=== PATIENT | male | born 1930 | race Caucasian/White ===

== ENCOUNTER 2018-02-02 11:23 | Inpatient (IN) ==
[2018-02-02] MEDS ORDERED: Sod Chloride 0.9% Inj 1,000 ML IV.SIG ONE (11:44)
[2018-02-02 12:02] LABS: Baso # (Auto) 0.2 th/mm3 (0.0-0.2); Baso % (Auto) 1.2 % (0.0-2.0); Eos # (Auto) 0.5 th/mm3 (0.0-0.4); Eos % (Auto) 3.1 % (0.0-4.0); Hematocrit 33.4 % (39.0-51.0); Lymph # (Auto) 1.5 th/mm3 (1.0-4.8); Lymph % (Auto) 10.1 % (9.0-44.0); Mean Corpuscular Hemoglobin 29.7 pg (27.0-34.0); Mean Corpuscular Volume 89.9 fL (80.0-100.0); Mean Platelet Volume 8.5 fL (7.0-11.0); Mono # (Auto) 1.3 th/mm3 (0.0-0.9); Mono % (Auto) 8.7 % (0.0-8.0); Neut # (Auto) 11.2 th/mm3 (1.8-7.7); Neut % (Auto) 76.9 % (16.0-70.0); Platelet Count 435 th/mm3 (150-450); Red Blood Count 3.72 mil/mm3 (4.50-5.90); Red Cell Distribution Width 16.3 % (11.6-17.2); White Blood Count 14.6 th/mm3 (4.0-11.0)
--- NOTE | 2018-02-02 12:23 | ED ---
HPI General Chief complaint: Weakness Stated complaint: SOB/weakness/dizziness Time Seen by Provider: 02/02/18 11:49 Source: patient and family Mode of arrival: wheelchair Limitations: no limitations History of Present Illness MD Complaint: Reports generalized weakness Onset (ago): week(s) (1) Duration: progressively worsening Location: Reports generalized Severity: moderate Relieving factors: none Exacerbating factors: none Context: Reports other (No obvious reason) Associated symptoms: Reports confusion, loss of appetite and shortness of breath ; Denies dysuria, fever/chills and nausea/vomiting (Positive diarrhea) Related Data Home Medications Medication Instructions Recorded Confirmed Unable to Obtain Home Meds 02/02/18 02/02/18 Allergies Allergy/AdvReac Type Severity Reaction Status Date / Time tramadol Allergy Intermediate confusion Unverified 11/24/16 12:39 MRI PRECAUTION Allergy Severe Uncoded 03/21/15 06:31 Review of Systems ROS: all other systems reviewed are negative [facility] Medical History Medical History CHF (congestive heart failure) (Acute) Diabetes (Acute) Pacemaker (Acute) Stroke (Acute) Social History Social History Substance History: No History of Abuse Smoking Status: Never smoker How Often Do You Have a Drink Containing Alcohol: Never Recent Travel in [facility] within the Last 8 Weeks: No Recent Out of Country Travel within the Last 8 Weeks: No Immunization History Tetanus Immunization: Unsure Exam Const General: cooperative, healthy appearing, comfortable, no acute distress and well developed Orientation: alert, awake and oriented x3 HENMT Head: normal to inspection, normocephalic and atraumatic Mouth: moist mucous membranes abnormal Eyes Alignment and Position: alignment normal and position abnormal Conjunctivae: conjunctivae normal Sclera: sclerae normal EOM: EOM intact bilaterally Neck Neck: normal visual inspection and full ROM Chest Chest: normal inspection of the chest Resp Effort & Inspection: normal respiratory effort and labored ( mildly labored) Auscultation: clear to auscultation bilaterally Cardio Rate: regular rate Rhythm: regular rhythm Other: Initial systolic blood pressure was 79 GI Inspection: normal to inspection Palpation: soft Back/Spine/Pelvis Cervical Spine: cervical ROM normal Thoracic/Lumbar Spine: thoraco-lumbar ROM normal Skin General: no rashes or lesions noted, turgor normal and dry skin Neuro General: alert, awake, oriented x3, moves all extremities and CN's II-XI intact bilaterally Extrem General: normal to inspection and full ROM Psych Appearance: grossly normal Mental Status: mental status grossly normal Speech and Movement: speech and movement normal Mood: congruent mood Affect: normal affect Attitude: cooperative Thought Process: normal Thought Content: normal Judgment: judgment good Course Consultations Consultation #1: Dr. Mcmillan Time: 13:34 Initial Documented Vital Signs Temperature 96.5 F L 02/02/18 11:30 Pulse Rate 68 02/02/18 11:30 Respiratory Rate 18 02/02/18 11:30 Blood Pressure 72/41 L 02/02/18 11:30 Pulse Oximetry 100 02/02/18 11:30 Last Documented Vital Signs Temperature 96.5 F L 02/02/18 11:30 Pulse Rate 69 02/02/18 13:37 Respiratory Rate 18 02/02/18 13:37 Blood Pressure 122/61 02/02/18 13:37 Pulse Oximetry 95 02/02/18 13:37 Critical Care Time Critical Care Time: Yes Total Critical Care Time: 45 Attestation: Time to perform other separately billable procedures was not included in the critical care time. My time did not include minutes spent treating any other patients simultaneously or on activities that did not directly contribute to the patient's treatment. The services I provided to this patient were to treat and/or prevent clinically significant deterioration due to hypotension, hyperkalemia, acute on chronic renal failure I provided critical care services requiring my management, as noted below: Chart data review, documentation time, medication orders and management, vital sign assessments/reviewing monitor data, ordering and reviewing lab tests, ordering and interpreting/reviewing x-rays and diagnostic studies, care of the patient and discussion of the patient with the admitting physicians Medical Decision Making MDM Narrative Medical decision making narrative: Patient presents with weakness, confusion, poor appetite and diarrhea for the last week. Family member reports that he has lost 11 pounds in 1 week. He will be fluid resuscitated. Medical Screen Exam Complete: Yes Emergency Medical Condition: Yes Lab Data Lab results reviewed: Yes I reviewed the patient's lab results. Result diagrams: 02/02/18 11:52 02/02/18 11:52 Lab Results 02/02/18 02/02/18 Range/Units 11:52 11:52 WBC 14.6 H (4.0-11.0) th/mm3 RBC 3.72 L (4.50-5.90) mil/mm3 Hgb 11.0 L (13.0-17.0) gm/dL Hct 33.4 L (39.0-51.0) % MCV 89.9 (80.0-100.0) fL MCH 29.7 (27.0-34.0) pg MCHC 33.0 (32.0-36.0) % RDW 16.3 (11.6-17.2) % Plt Count 435 (150-450) th/mm3 MPV 8.5 (7.0-11.0) fL Neut % (Auto) 76.9 H (16.0-70.0) % Lymph % (Auto) 10.1 (9.0-44.0) % [place] % (Auto) 8.7 H (0.0-8.0) % Eos % (Auto) 3.1 (0.0-4.0) % Baso % (Auto) 1.2 (0.0-2.0) % Neut # (Auto) 11.2 H (1.8-7.7) th/mm3 Lymph # (Auto) 1.5 (1.0-4.8) th/mm3 [place] # (Auto) 1.3 H (0.0-0.9) th/mm3 Eos # (Auto) 0.5 H (0.0-0.4) th/mm3 Baso # (Auto) 0.2 (0.0-0.2) th/mm3 WBC Differential . Differential Comment Auto diff final Sodium 137 (136-145) meq/L Potassium 6.7 H* (3.5-5.1) meq/L Chloride 109 H (98-107) meq/L Carbon Dioxide 18.0 L (21.0-32.0) meq/L Anion Gap 10 (5-15) meq/L BUN 73 H (7-18) mg/dL Creatinine 3.67 H (0.60-1.30) mg/dL Estimated GFR 16 L (>89) mL/min Random Glucose 145 H (74-106) mg/dL Calcium 8.6 (8.5-10.1) mg/dL Magnesium 2.9 H (1.5-2.5) mg/dL Total Bilirubin 0.2 (0.2-1.0) mg/dL AST 26 (15-37) U/L ALT 32 (12-78) U/L Alkaline Phosphatase 113 (45-117) U/L Troponin I Less than 0.02 L (0.02-0.05) ng/mL Total Protein 7.5 (6.4-8.2) g/dL Albumin 3.1 L (3.4-5.0) g/dL Imaging Data Radiologist's impression: Chest X-Ray 02/02/18 12:23 CONCLUSION: 1. No acute abnormality or significant interval change. ECG Data EKG Prior to Arrival: No Attestation: I personally reviewed and interpreted this ECG as follows: (EKG shows a paced rhythm with a rate of 72. No Scar[place]ossa criteria. Prevous EKG was not paced.) Prior ECG tracings: available for review Discharge Plan Discharge Disposition Patient Disposition: 30 Still Patient Discharge Details Diagnosis: Acute hypotension, Acute hyperkalemia, Renal failure (ARF), acute on chronic Physicians Team ED Provider: Aiyana Gross Primary Care Provider: Norman Penn Rxs /Orders / Referrals /Forms Prescriptions: No Action Unable to Obtain Home Meds RF: 0 Status ED Status: Pending Admission
[2018-02-02 12:25] LABS: Alanine Aminotransferase 32 U/L (12-78); Albumin 3.1 g/dL (3.4-5.0); Anion Gap 10 meq/L (5-15); Aspartate Aminotransferase 26 U/L (15-37); Blood Urea Nitrogen 73 mg/dL (7-18); Calcium 8.6 mg/dL (8.5-10.1); Chloride 109 meq/L (98-107); Glomerular Filtration Rate 16 mL/min (>89); Glucose,Random 145 mg/dL (74-106); Magnesium 2.9 mg/dL (1.5-2.5); Sodium 137 meq/L (136-145)
[2018-02-02 12:26] LABS: Alkaline Phosphatase 113 U/L (45-117); Total Protein 7.5 g/dL (6.4-8.2)
[2018-02-02 12:28] LABS: Potassium 6.7 meq/L (3.5-5.1)
[2018-02-02] MEDS ORDERED: Sodium Bicarbonate 8.4% Inj 50 MEQ/50 ML Syringe IV.PUSH ONE (12:30)
[2018-02-02] MEDS ORDERED: Calcium Chloride Inj 1 GM/10 ML Syringe IV.PUSH ONE (12:30)
[2018-02-02] MEDS ORDERED: Sodium Polystyrene Sulfonate/Sorbitol Liq 15 GM/60 ML UDC PO ONE (12:31)
--- NOTE | 2018-02-02 12:50 | XR ---
EXAM DATE: 02/02/2018 12:23 PM EDT AGE/SEX: 87 years / Male INDICATIONS: . Cough. CLINICAL DATA: This is the patient's initial encounter. Patient reports that signs and symptoms have been present for 1 day and indicates a pain score of 0/10. MEDICAL/SURGICAL HISTORY: . A-fib. Pacemaker. COMPARISON: [facility] [place], 03/21/2015. . FINDINGS: Stable diffuse interstitial prominence. No significant new focal pleural or parenchymal opacities. Ca rdiac silhouette is mildly enlarged. Stable dual lead pacemaker in place. Remainder of the exam is un changed. CONCLUSION: 1. No acute abnormality or significant interval change. Electronically signed by: Toy Vogel MD 02/02/2018 12:49 PM EDT
[2018-02-02] MEDS ORDERED: Sod Chloride 0.9% Inj 1,000 ML IV.SIG SCH (13:15)
[2018-02-02] MEDS ORDERED: Bisacodyl 10 MG Supp RECTAL PRN (13:50)
[2018-02-02] MEDS ORDERED: Acetaminophen 325 MG Tablet PO PRN (13:50)
[2018-02-02] MEDS ORDERED: Morphine Sulfate Inj 2 MG/ML Vial IV.PUSH PRN (13:50)
[2018-02-02] MEDS ORDERED: Dextrose 50% in Water 50 ML Vial IV.PUSH PRN (13:57)
[2018-02-02] MEDS ORDERED: Sod Chloride 0.9% Inj 1,000 ML IV.CONT SCH (14:00)
--- NOTE | 2018-02-02 14:10 | P.HPCC ---
History of Present Illness Service: Critical care medicine Primary Care Physician: Norman Penn MD, R3 Chief Complaint: Generalized weakness History of Present Illness: This is a 87-year-old male. Full code. Admission 02/02/2018. Past medical history includes hypertension, hyperlipidemia, coronary artery disease, atrial fibrillation currently with a atrioventricular pacemaker, diabetes mellitus and prior history of CVA with no current focal neurological deficits. Patient presents to [facility] with 2-week history of generalized weakness/ fatigue. Patient has had a very poor appetite and intermittent diarrhea according to 2 care provider at bedside. He was noted to be initially hypotensive with a systolic blood pressure in the 60s. Received 2 L normal saline is currently with a systolic blood sugar 120 and feeling much improved. Initial EKG revealed a paced rhythm. Troponin was 0.02. BMP revealed acute kidney with a creatinine of 3.7. Baseline 1.6. Potassium is 6.7. Patient has a leukocytosis of 14,000 and normocytic anemia. UA is currently pending. Denies any chest pain, abdominal pain. Patient received with potassium binding resins, bicarbonate, D50 and insulin. Recheck potassium is currently pending. We are asked to admit the patient by the ER physician. - Diagnosis (1) Coronary artery disease (2) Essential hypertension (3) Hyperlipidemia (4) Leukocytosis (5) Normocytic anemia (6) Hypermagnesemia (7) Acute hypotension (8) Acute hyperkalemia (9) Renal failure (ARF), acute on chronic Inpatient Certification: I certify that the inpatient services were ordered in accordance with Medicare regulations governing the order. This includes certification that hospital inpatient services are reasonable and necessary and in the case of services not specified as inpatient-only under 42 CFR 419.22(n), that they are appropriately provided as inpatient services in accordance to with the 2-midnight benchmark under 43 CFR 412.3(e) Estimated Total Length of Stay (Days): 3 Plans for Post Hospital Care: Home Review of Systems Constitutional: Reports anorexia, Reports body ache(s), Denies chills, Denies daytime sleepiness Eyes: Denies blind spots, Denies blurry vision Ears, Nose, Mouth, and Throat: Reports poor balance, Denies abnormal hearing, Denies hoarseness Cardiovascular: Denies chest pain, Denies leg swelling, Denies shortness of breath, Denies shortness of breath with activity Respiratory: Denies chest congestion, Denies pain on inspiration, Denies shortness of breath with activity Gastrointestinal: Reports bloating, Reports loose stools, Reports nausea, Denies abdominal pain, Denies vomiting Genitourinary: Reports urinary hesitancy, Denies decreased urination Musculoskeletal: Reports abnormal walking, Reports joint pain Skin/Breast: Denies bleeding lesions, Denies redness Neurologic: Reports unsteadiness, Denies abnormal hearing, Denies frequent falls , Denies headache(s) Psychiatric: Denies anxiety, Denies confusion, Denies depression Endocrine: Denies cold intolerance, Denies increased thirst Hematologic/Lymphatic: Denies easy bleeding Allergic/Immunologic: Denies GI upset with certain foods PMFSH - History History Provided By: Family Member - Medical History Medical History: Medical History (Last Updated 02/02/18 @ 14:08 by Bhanu Mcmillan MD) CHF (congestive heart failure) Chronic kidney disease, stage III (moderate) Diabetes Essential hypertension History of atrial fibrillation History of pacemaker Hyperlipidemia Pacemaker Stroke - Surgical History Surgical History: Surgical History (Last Updated 02/02/18 @ 14:08 by Bhanu Mcmillan MD) History of bilateral knee replacement - Family History Family History: Family History (Last Updated 02/02/18 @ 14:09 by Bhanu Mcmillan MD) Other Family history unknown - Social History I have reviewed the patient's Social History: Yes - Tobacco History Second Hand Smoke Exposure: No Tobacco Use In Past 30 Days: No Smoking Status: Never smoker - Alcohol History How Often Do You Have a Drink Containing Alcohol: Never - Substance Use History Substance History: No History of Abuse - Travel History Recent Travel in the [place] Within the Last 8 Weeks: No Recent Travel Out of the Country Within the Last 8 Weeks: No - Immunization History Tetanus Immunization: Unsure Medications and Allergies Active Medications: Active Medications Acetaminophen (Tylenol) 650 mg PO Q6H PRN PRN Reason: FEVER Hydrocodone Bitart/Acetaminophen (Huger 5/325) 1 tab PO Q4H PRN PRN Reason: PAIN SCALE 1 TO 5 Al Hydroxide/Mg Hydroxide (Milk Of Magnesia Liq) 30 ml PO Q12H PRN PRN Reason: Mild Constipation Albuterol (Albuterol Neb (Leatha)) 2.5 mg NEB Q2HR NEB PRN PRN Reason: SHORTNESS OF BREATH/WHEEZING Albuterol (Duoneb Neb (Prn)) 1 ampul NEB Q6HR NEB [facility] Bisacodyl (Dulcolax Supp) 10 mg RECTAL DAILY PRN PRN Reason: SEVERE CONSITIPATION Chlorhexidine Gluconate (Chlorhexidine 2% Cloth) 3 pack TOPICAL DAILY@0400 LEATHA Stop: 02/08/18 03:59 Chlorhexidine Gluconate (Chlorhexidine 2% Cloth) 3 pack TOPICAL DAILY@0400 PRN PRN Reason: Extra cloth needed Stop: 02/08/18 03:59 Chlorhexidine Gluconate (Chlorhexidine 2% Cloth) 3 pack TOPICAL DAILY@0400 LEATHA Stop: 02/08/18 03:59 Chlorhexidine Gluconate (Chlorhexidine 2% Cloth) 3 pack TOPICAL DAILY@0400 PRN PRN Reason: Extra cloth needed Stop: 02/08/18 03:59 Dextrose (D50w Vial) 50 ml IV.PUSH UNSCH PRN PRN Reason: PER HYPOGLYCEMIA PROTOCOL Glucagon (Glucagon Inj) 1 mg OTHER PRN PRN PRN Reason: for Hypoglycemia Protocol Heparin Sodium (Porcine) (Heparin Inj) 5,000 units SQ Q12H [facility] Sodium Chloride (Ns Inj) 1,000 mls @ 0 mls/hr IV.SIG BOLUS [facility] Sodium Chloride (Ns Inj) 1,000 mls @ 84 mls/hr IV.CONT .[id number] [facility] Insulin Aspart (Novolog Insulin Correctional Sugar Inj) 0 unit SQ Q6HR [facility]; Protocol Lactulose (Lactulose Liq) 30 ml PO DAILY PRN PRN Reason: SEVERE CONSITIPATION Morphine Sulfate (Morphine Inj) 2 mg IV.PUSH Q2H PRN PRN Reason: PAIN SCALE 6 TO 10 Ondansetron HCl (Zofran Inj) 4 mg IV.PUSH Q6H PRN PRN Reason: NAUSEA OR VOMITING Pantoprazole Sodium (Protonix) 40 mg PO DAILY [facility] Sennosides (Senokot) 17.2 mg PO Q12H PRN PRN Reason: Moderate Constipation Sodium Chloride (Ns Flush) 2 ml IV.FLUSH PRN PRN PRN Reason: FLUSH AFTER USING IV ACCESS Sodium Chloride (Ns Flush) 2 ml IV.FLUSH BID LEATHA Sodium Chloride (Ns Flush) 2 ml IV.FLUSH PRN PRN PRN Reason: FLUSH AFTER USING IV ACCESS Allergies Allergy/AdvReac Type Severity Reaction Status Date / Time tramadol Allergy Intermediate confusion Unverified 11/24/16 12:39 MRI PRECAUTION Allergy Severe Uncoded 03/21/15 06:31 Home Medications Medication Instructions Recorded Confirmed Type Unable to Obtain Home Meds 02/02/18 02/02/18 History Results - Labs CBC & Chem 7: 02/02/18 11:52 02/02/18 11:52 Labs: Short CBC 02/02/18 Range/Units 11:52 WBC 14.6 H (4.0-11.0) th/mm3 Hgb 11.0 L (13.0-17.0) gm/dL Hct 33.4 L (39.0-51.0) % Plt Count 435 (150-450) th/mm3 BMP 02/02/18 11:52 Sodium 137 Potassium 6.7 H* Chloride 109 H Carbon Dioxide 18.0 L BUN 73 H Creatinine 3.67 H Calcium 8.6 Cardiac Enzymes 02/02/18 Range/Units 11:52 Troponin I Less than 0.02 L (0.02-0.05) ng/mL Liver Function 02/02/18 Range/Units 11:52 Total Bilirubin 0.2 (0.2-1.0) mg/dL AST 26 (15-37) U/L ALT 32 (12-78) U/L Alkaline Phosphatase 113 (45-117) U/L Albumin 3.1 L (3.4-5.0) g/dL - Imaging Impressions Chest X-Ray 02/02/18 12:23 CONCLUSION: 1. No acute abnormality or significant interval change. Exam Vital signs: Vital Signs 02/02/18 11:30 02/02/18 11:47 02/02/18 12:31 Temperature 96.5 F L Pulse Rate 68 71 69 Respiratory Rate 18 18 20 Blood Pressure 72/41 L 99/54 L 100/52 L Pulse Oximetry 100 98 95 02/02/18 13:37 Temperature Pulse Rate 69 Respiratory Rate 18 Blood Pressure 122/61 Pulse Oximetry 95 Intake & Output 02/01/18 02/02/18 02/02/18 18:59 06:59 18:59 Intake Total 1000 / 1000 Balance 1000 / 1000 Weight 81.647 kg Intake: IV 1000 / 1000 NS Inj 1,000 ML @ Wide Open IV. 1000 / 1000 SIG BOLUS ONE Rx#:[id number] - Constitutional no acute distress - Routine HEENT Exam Head: Present: normocephalic, atraumatic Eye: Present: EOMI, PERRL ENT: Present: mucous membranes dry, external ear normal - Routine Neck Exam Present: supple, full ROM. Absent: JVD - Routine Chest/Breast/Axilla Exam Chest wall: Absent: tenderness Breast: Absent: tenderness Axillae: Absent: lymphadenopathy - Routine Respiratory Exam Present: CTA bilaterally. Absent: accessory muscle use, rhonchi - Routine Cardiovascular Exam Comments: Atrioventricular paced rhythm. No murmurs. - Routine Abdominal Exam Present: soft, normoactive bowel sounds. Absent: tenderness - Routine Extremities Exam Absent: cyanosis, clubbing, edema - Routine Skin Exam Present: intact - Routine Neurological Exam Present: alert, oriented X3, CN II-XII intact. Absent: sensory deficit, motor deficit Septic Shock Reassessment Septic shock perfusion: reassessment completed Caprini VTE Risk Assessment Caprini VTE Risk Assessment: Moderate/High Risk (score >= 2) Caprini Risk Assessment Model: Point Value = 1 Point Value = 2 Point Value = 3 Point Value = 5 Age 41-60 Minor surgery BMI > 25 kg/m2 Swollen legs Varicose veins or History of unexplained or recurrent spontaneous Oral contraceptives or hormone replacement Sepsis (< 1 month) Serious lung disease, including pneumonia (< 1 month) Abnormal pulmonary function Acute myocardial infarction Congestive heart failure (< 1 month) History of inflammatory bowel disease Medical patient at bed rest Age 61-74 Arthroscopic surgery Major open surgery (> 45 min) Laparoscopic surgery (> 45 min) Malignancy Confined to bed (> 72 hours) Immobilizing plaster cast Central venous access Age >= 75 History of VTE Family history of VTE Factor V Leiden Prothrombin [id number] Lupus anticoagulant Anticardiolipin antibodies Elevated serum homocysteine Heparin-induced thrombocytopenia Other congenital or acquired thrombophilia Stroke (< 1 month) Elective arthroplasty Hip, pelvis, or leg fracture Acute spinal cord injury (< 1 month) Prophylaxis Regimen: Total Risk Factor Score Risk Level Prophylaxis Regimen 0-1 Low Early ambulation 2 Moderate Order ONE of the following: *Sequential Compression Device (SCD) *Heparin 5000 units SQ BID 3-4 Higher Order ONE of the following medications: *Heparin 5000 units SQ TID *Enoxaparin/Lovenox 40 mg SQ daily (WT < 150 kg, CrCl > 30 mL/min) *Enoxaparin/Lovenox 30 mg SQ daily (WT < 150 kg, CrCl > 10-29 mL/min) *Enoxaparin/Lovenox 30 mg SQ BID (WT < 150 kg, CrCl > 30 mL/min) AND/OR *Sequential Compression Device (SCD) 5 or more Highest Order ONE of the following medications: *Heparin 5000 units SQ TID (Preferred with Epidurals) *Enoxaparin/Lovenox 40 mg SQ daily (WT < 150 kg, CrCl > 30 mL/min) *Enoxaparin/Lovenox 30 mg SQ daily (WT < 150 kg, CrCl > 10-29 mL/min) *Enoxaparin/Lovenox 30 mg SQ BID (WT < 150 kg, CrCl > 30 mL/min) AND *Sequential Compression Device (SCD) Assessment and Plan - Problem List (1) Coronary artery disease Code(s): I25.10 - Atherosclerotic heart disease of [place] coronary artery without angina pectoris Status: Acute (2) Essential hypertension Code(s): I10 - Essential (primary) hypertension Status: Acute (3) Hyperlipidemia Code(s): E78.5 - Hyperlipidemia, unspecified Status: Acute (4) Leukocytosis Code(s): D72.829 - Elevated white blood cell count, unspecified Status: Acute (5) Normocytic anemia Code(s): D64.9 - Anemia, unspecified Status: Acute (6) Hypermagnesemia Code(s): E83.41 - Hypermagnesemia Status: Acute (7) Acute hypotension Code(s): I95.9 - Hypotension, unspecified Status: Acute (8) Acute hyperkalemia Code(s): E87.5 - Hyperkalemia Status: Acute (9) Renal failure (ARF), acute on chronic Code(s): N17.9 - Acute kidney failure, unspecified; N18.9 - Chronic kidney disease, unspecified Status: Acute - Assessment and Plan Plan: Neuro/Psych: History of CVA Obtain home medications. Acetaminophen 650 mg p.o. every 6 hours as needed fever Hydrocodone/acetaminophen 5/325 1 tablet every 4 hours as needed pain 1 through 5 Morphine sulfate 2 mg IV every 2 hours as needed pain 6 through 10 CV: History of atrial fibrillation Status post atrial/ventricular pacemaker Coronary artery disease Essential hypertension Hyperlipidemia Obtain home medications Received 2 L normal saline wide open ED. Initial troponin 0 0.02. EKG revealed atrial ventricular paced rhythm. Echocardiogram 2014 revealed EF of 50-55%. LVH. LA dilatation. PAP 33 mmHg. Resp: Nasal cannula to maintain saturations greater than equal to 90% Incentive spirometry while awake As needed albuterol aerosols every 2 hours as needed GI: Diarrhea Check C. difficile KUB ordered Liver function test within normal limits. Check lipase. Advance diet to diabetic/cardiac diet : Straight catheterization as needed Endo: History of diabetes mellitus Sliding scale insulin Accu-Cheks to maintain euglycemia/aspart insulin medium protocol Check TSH Renal: Acute kidney injury in the setting of chronic kidney disease stage III a Check renal ultrasound and urine eosinophils and sodium and creatinine Obtain home medications Avoid nephrotoxic medications Monitor urine output Accurate I's and O's Recheck BUN and creatinine in a.m. 11/03 Heme: Normocytic anemia Leukocytosis Monitor CBC daily. Follow trends. No indication for transfusion of blood products at this time. ID: Monitor for signs and since hematology infection MSK: PT evaluate and treat. FEN: Acute hyperkalemia Acute hypermagnesia Recheck potassium at 1700 hrs. Received 2 L normal saline in ED. Received D50/insulin/bicarbonate, calcium and potassium binder EKG revealed atrial and ventricularly paced rhythm. Received 2 L normal saline wide open. Currently on 0.9% NaCl at 84 cc an hour Access Utilize peripheral IV. Central line if indicated Prophylaxis -GI -pantoprazole -DVT-SCD/enoxaparin Level 3 admission Code Status: Full code Discussed Condition With: Dr. Gross/emergency room physician. Patient. Care plan discussed and all questions answered. Healthcare provider not available at time of dictation (1) Coronary artery disease Qualifiers: Coronary Disease-Associated Artery/Lesion type: [place] artery [place] vs. transplanted heart: [place] heart Associated angina: angina presence unspecified Qualified Code(s): I25.10 - Atherosclerotic heart disease of [place] coronary artery without angina pectoris (3) Hyperlipidemia Qualifiers: Hyperlipidemia type: unspecified Qualified Code(s): E78.5 - Hyperlipidemia, unspecified (4) Leukocytosis Qualifiers: Leukocytosis type: unspecified Qualified Code(s): D72.829 - Elevated white blood cell count, unspecified (9) Renal failure (ARF), acute on chronic Qualifiers: Acute renal failure type: unspecified Chronic kidney disease stage: stage 3 ( moderate) Qualified Code(s): N17.9 - Acute kidney failure, unspecified; N18.3 - Chronic kidney disease, stage 3 (moderate)
[2018-02-02 14:32] LABS: Bacteria,Urine Rare /hpf; Bilirubin,Urine Negative (Negative); Clarity,Urine Cloudy (Clear); Color,Urine Yellow (Yellw/Straw); Glucose,Urine (UA) Negative (Negative); Hyaline Casts,Urine 76 /lpf (0-3); Leukocyte Esterase,Urine Trace (Negative); Mucus,Urine Few /lpf (Occasional); Nitrite,Urine Negative (Negative); Squamous Epithelial Cell,Urine 2 /hpf (0-5)
[2018-02-02] MEDS ORDERED: Heparin - SQ 10,000 UNITS/ML Vial SQ SCH (15:00)
--- NOTE | 2018-02-02 15:09 | P.CONFP ---
History of Present Illness Service: Family Medicine Consult date: 02/02/18 Requesting Physician: Norman Penn Reason for Consult: Continuity of care (Follows with [facility]) Primary Care Provider: Norman Penn MD, R3 Chief Complaint: Generalized weakness History of Present Illness: 87 yo male with CHF, HTN, DM presenting with a 1 week history of slowly progressive altered mental status, shortness of breath, and fatigue without focal weakness. His caregiver is present who provides most history. Over the last week he has been struggling more to breathe, especially with exertion. He used to be able to walk to the bathroom without SOB, but now minimal activity makes him incredibly short of breath. No wheezing noted. He has also been more fatigued globally, sleeping significantly more than usual. No focal weakness or speech difficulty noted. Slow weight loss also reported (patient was unable to get on scale today for weight). Caregiver also notes diarrhea for the last 5 days. No abdominal pain or bloody stool reported. He was seen in clinic this morning by myself and the above history was noted. At the time, his BP was low (80/40) despite recent reduction of his lisinopril dose a month ago (was asymptomatic at that time). On exam in the office patient appeared to be in mild distress. Heart/lung exam was benign. Due to clinical impression he was sent to the ER for evaluation. Patient is now admitted to the ICU due to acute kidney injury and dehydration with hypotension. He and caregiver note no new symptoms since seen in office this morning. Consult placed by myself for continuity of care after discussion with cloud security architect Dr. Mcmillan. In ER, patient was found to be hyperkalemic with potassium of 6.7. EKG showed paced ventricular rhythm but otherwise no significant abnormality. He received IV calcium, oral kayexelate, insulin, and dextrose to treat the hyperkalemia. He was also found to be hypotensive with significant NICOLASA. Review of Systems Constitutional: Reports anorexia, Reports fatigue, Reports lack of energy, Denies chills, Denies fever(s) Ears, Nose, Mouth, and Throat: Reports abnormal hearing Cardiovascular: Reports shortness of breath, Reports shortness of breath with activity, Denies chest pain, Denies chest pain with activity, Denies leg swelling Respiratory: Reports shortness of breath, Reports shortness of breath with activity, Denies cough Gastrointestinal: Reports loose stools, Denies abdominal pain, Denies black, tarry stools, Denies bright, red blood in stools Musculoskeletal: Reports back pain Skin/Breast: Denies rash Neurologic: Denies abnormal speech, Denies localized weakness Psychiatric: Denies anxiety, Denies depression [facility] - History History Provided By: Family Member - Medical History Medical History: Medical History (Last Updated 02/02/18 @ 14:08 by Bhanu Mcmillan MD) CHF (congestive heart failure) Chronic kidney disease, stage III (moderate) Diabetes Essential hypertension History of atrial fibrillation History of pacemaker Hyperlipidemia Pacemaker Stroke - Surgical History Surgical History: Surgical History (Last Updated 02/02/18 @ 14:08 by Bhanu Mcmillan MD) History of bilateral knee replacement - Family History Family History: Family History (Last Updated 02/02/18 @ 22:24 by Norman Penn MD, R3) Brother Prostate cancer Mother Essential hypertension Father Essential hypertension - Social History I have reviewed the patient's Social History: Yes - Tobacco History Second Hand Smoke Exposure: No Tobacco Use In Past 30 Days: No Smoking Status: Former smoker (quit 50 years ago) - Alcohol History How Often Do You Have a Drink Containing Alcohol: Never - Substance Use History Substance History: No History of Abuse - Travel History Recent Travel in the [place] Within the Last 8 Weeks: No Recent Travel Out of the Country Within the Last 8 Weeks: No - Immunization History Tetanus Immunization: Unsure Medications and Allergies Active Medications: Active Medications Acetaminophen (Tylenol) 650 mg PO Q6H PRN PRN Reason: FEVER Hydrocodone Bitart/Acetaminophen ([place] 5/325) 1 tab PO Q4H PRN PRN Reason: PAIN SCALE 1 TO 5 Al Hydroxide/Mg Hydroxide (Milk Of Joy Liq) 30 ml PO Q12H PRN PRN Reason: Mild Constipation Albuterol (Albuterol Neb (Prn)) 2.5 mg NEB Q2HR NEB PRN PRN Reason: SHORTNESS OF BREATH/WHEEZING Albuterol (Duoneb Neb (Leatha)) 1 ampul NEB Q6HR NEB LEATHA Bisacodyl (Dulcolax Supp) 10 mg RECTAL DAILY PRN PRN Reason: SEVERE CONSITIPATION Chlorhexidine Gluconate (Chlorhexidine 2% Cloth) 3 pack TOPICAL DAILY@0400 LEATHA Stop: 02/08/18 03:59 Chlorhexidine Gluconate (Chlorhexidine 2% Cloth) 3 pack TOPICAL DAILY@0400 PRN PRN Reason: Extra cloth needed Stop: 02/08/18 03:59 Dextrose (D50w Vial) 50 ml IV.PUSH UNSCH PRN PRN Reason: PER HYPOGLYCEMIA PROTOCOL Glucagon (Glucagon Inj) 1 mg OTHER UNSCH PRN PRN Reason: for Hypoglycemia Protocol Heparin Sodium (Porcine) (Heparin Inj) 5,000 units SQ Q12H LEATHA Sodium Chloride (Ns Inj) 1,000 mls @ 0 mls/hr IV.SIG BOLUS LEATHA Sodium Chloride (Ns Inj) 1,000 mls @ 84 mls/hr IV.CONT .[id number] [facility] Insulin Aspart (Novolog Insulin Correctional Sugar Inj) 0 unit SQ Q6HR LEATHA; Protocol Lactulose (Lactulose Liq) 30 ml PO DAILY PRN PRN Reason: SEVERE CONSITIPATION Morphine Sulfate (Morphine Inj) 2 mg IV.PUSH Q2H PRN PRN Reason: PAIN SCALE 6 TO 10 Ondansetron HCl (Zofran Inj) 4 mg IV.PUSH Q6H PRN PRN Reason: NAUSEA OR VOMITING Pantoprazole Sodium (Protonix) 40 mg PO DAILY [facility] Sennosides (Senokot) 17.2 mg PO Q12H PRN PRN Reason: Moderate Constipation Sodium Chloride (Ns Flush) 2 ml IV.FLUSH BID LEATHA Sodium Chloride (Ns Flush) 2 ml IV.FLUSH UNSCH PRN PRN Reason: FLUSH AFTER USING IV ACCESS Allergies Allergy/AdvReac Type Severity Reaction Status Date / Time tramadol Allergy Intermediate confusion Unverified 11/24/16 12:39 MRI PRECAUTION Allergy Severe Uncoded 03/21/15 06:31 Home Medications Medication Instructions Recorded Confirmed Type amiodarone 200 mg PO DAILY 02/02/18 02/02/18 History apixaban [Eliquis] 5 mg PO BID 02/02/18 02/02/18 History carvedilol 6.25 mg PO BID 02/02/18 02/02/18 History furosemide 20 mg PO DAILY 02/02/18 02/02/18 History insulin glargine [Lantus Solostar 15 unit SUBCUT DAILY 02/02/18 02/02/18 History U-100 Insulin] levothyroxine 25 mcg PO DAILY 02/02/18 02/02/18 History lisinopril 10 mg PO DAILY 02/02/18 02/02/18 History meloxicam 7.5 mg PO DAILY 02/02/18 02/02/18 History spironolactone 25 mg PO DAILY PRN 02/02/18 02/02/18 History tamsulosin 0.4 mg PO DAILY 02/02/18 02/02/18 History Exam Vital signs: Vital Signs 02/02/18 11:30 02/02/18 11:47 02/02/18 12:31 Temperature 96.5 F L Pulse Rate 68 71 69 Respiratory Rate 18 18 20 Blood Pressure 72/41 L 99/54 L 100/52 L Pulse Oximetry 100 98 95 02/02/18 13:37 Temperature Pulse Rate 69 Respiratory Rate 18 Blood Pressure 122/61 Pulse Oximetry 95 Intake & Output 02/01/18 02/02/18 02/02/18 18:59 06:59 18:59 Intake Total 1000 / 1000 Balance 1000 / 1000 Weight 81.647 kg Intake: IV 1000 / 1000 NS Inj 1,000 ML @ Wide Open IV. 1000 / 1000 SIG BOLUS ONE Rx#:[id number] - Constitutional no acute distress - Routine HEENT Exam Head: Present: normocephalic, atraumatic ENT: Present: mucous membranes moist - Routine Respiratory Exam Present: CTA bilaterally. Absent: accessory muscle use, wheezes, crackles - Routine Cardiovascular Exam Present: RRR, S1, S2. Absent: murmur - Routine Abdominal Exam Present: soft. Absent: tenderness, distended - Routine Extremities Exam Absent: cyanosis, edema - Routine Skin Exam Present: intact. Absent: rash - Routine Neurological Exam Present: alert, oriented X3, CN II-XII intact, moving all extremities. Absent: sensory deficit, motor deficit Results - Labs Result diagrams: 02/02/18 11:52 02/02/18 16:43 Abnormal lab results 02/02/18 02/02/18 02/02/18 Range/Units 11:52 11:52 14:10 WBC 14.6 H (4.0-11.0) th/mm3 RBC 3.72 L (4.50-5.90) mil/mm3 Hgb 11.0 L (13.0-17.0) gm/dL Hct 33.4 L (39.0-51.0) % Neut % (Auto) 76.9 H (16.0-70.0) % [place] % (Auto) 8.7 H (0.0-8.0) % Neut # (Auto) 11.2 H (1.8-7.7) th/mm3 [place] # (Auto) 1.3 H (0.0-0.9) th/mm3 Eos # (Auto) 0.5 H (0.0-0.4) th/mm3 Potassium 6.7 H* (3.5-5.1) meq/L Chloride 109 H (98-107) meq/L Carbon Dioxide 18.0 L (21.0-32.0) meq/L BUN 73 H (7-18) mg/dL Creatinine 3.67 H (0.60-1.30) mg/dL Estimated GFR 16 L (>89) mL/min Random Glucose 145 H (74-106) mg/dL Magnesium 2.9 H (1.5-2.5) mg/dL Troponin I Less than 0.02 L (0.02-0.05) ng/mL Albumin 3.1 L (3.4-5.0) g/dL Urine Clarity Cloudy H (Clear) Urine Occult Blood Moderate H (Negative) Ur Leukocyte Esterase Trace H (Negative) Urine RBC 20 H (0-3) /hpf Urine WBC 8 H (0-5) /hpf Urine Bacteria Rare H (None) /hpf Urine Mucus Few H (Occasional) /lpf Short CBC 02/02/18 Range/Units 11:52 WBC 14.6 H (4.0-11.0) th/mm3 Hgb 11.0 L (13.0-17.0) gm/dL Hct 33.4 L (39.0-51.0) % Plt Count 435 (150-450) th/mm3 BMP 02/02/18 11:52 Sodium 137 Potassium 6.7 H* Chloride 109 H Carbon Dioxide 18.0 L BUN 73 H Creatinine 3.67 H Calcium 8.6 Cardiac Enzymes 02/02/18 Range/Units 11:52 Troponin I Less than 0.02 L (0.02-0.05) ng/mL Liver Function 02/02/18 Range/Units 11:52 Total Bilirubin 0.2 (0.2-1.0) mg/dL AST 26 (15-37) U/L ALT 32 (12-78) U/L Alkaline Phosphatase 113 (45-117) U/L Albumin 3.1 L (3.4-5.0) g/dL Urine 02/02/18 Range/Units 14:10 Urine Color Yellow (Yellw/Straw) Urine Clarity Cloudy H (Clear) Urine pH 5.0 (5.0-8.5) Ur Specific [place] 1.010 (1.002-1.035) Urine Protein Negative (Neg-Trace) mg/dL Urine Glucose (UA) Negative (Negative) mg/dL - Imaging Impressions Chest X-Ray 02/02/18 12:23 CONCLUSION: 1. No acute abnormality or significant interval change. Assessment and Plan - Assessment (1) Acute hypotension Code(s): I95.9 - Hypotension, unspecified Status: Acute (2) Acute hyperkalemia Code(s): E87.5 - Hyperkalemia Status: Acute (3) Renal failure (ARF), acute on chronic Code(s): N17.9 - Acute kidney failure, unspecified; N18.9 - Chronic kidney disease, unspecified Status: Acute Qualifiers: Acute renal failure type: unspecified Chronic kidney disease stage: stage 3 (moderate) Qualified Code(s): N17.9 - Acute kidney failure, unspecified; N18.3 - Chronic kidney disease, stage 3 (moderate) (4) Diarrhea Code(s): R19.7 - Diarrhea, unspecified Status: Acute (5) Hypermagnesemia Code(s): E83.41 - Hypermagnesemia Status: Acute (6) Normocytic anemia Code(s): D64.9 - Anemia, unspecified Status: Acute (7) Congestive heart failure Code(s): I50.9 - Heart failure, unspecified Status: Acute (8) Diabetes type 2, controlled Code(s): E11.9 - Type 2 diabetes mellitus without complications Status: Acute Qualifiers: Diabetes mellitus nursing home insulin use: with nursing home use Diabetes mellitus complication status: without complication Qualified Code(s): E11.9 - Type 2 diabetes mellitus without complications; Z79.4 - prison (current) use of insulin (9) History of CVA (cerebrovascular accident) Code(s): Z86.73 - Personal history of transient ischemic attack (TIA), and cerebral infarction without residual deficits Status: Acute (10) Essential hypertension Code(s): I10 - Essential (primary) hypertension Status: Chronic (11) Leukocytosis Code(s): D72.829 - Elevated white blood cell count, unspecified Status: Acute Qualifiers: Leukocytosis type: unspecified Qualified Code(s): D72.829 - Elevated white blood cell count, unspecified - Assessment and Plan 87 yo male with h/o CHF, DM, HTN, cardiac pacemaker, and prior stroke presenting with: 1. Acute hypotension Likely secondary to dehydration from diarrhea Labs with leukocytosis, no clinical signs of infection/sepsis Responding to IV fluids * S/p 2 L bolus, BP responded appropriately * Monitor BP * Continue rehydration with sodium bicarbonate at 84 cc/hr * Hold home antihypertensives; may resume when BP persistently normal 2. Acute on chronic renal failure Cr 3.7, baseline 1.5 Etiology likely prerenal based on clinical history * IV hydration as noted * Check urine eosinophils * Check urine Na, Cr * Check renal US 3. Electrolyte abnormalities - Hyperkalemia, hypermagnesemia Likely due to ARF S/p kayexelate, Ca, insulin - repeat potassium shows decreasing level * Continue to treat ARF as above * Cardiac telemetry * Monitor BMP * Neuro checks while hypermagnesemic 4. Normocytic anemia Mild. Unclear etiology, possibly due to CKD (baseline stage 3), however could also be iron deficiency or other chronic illness * Follow CBC 5. Leukocytosis Possibly stress response. No infectious etiology identified. Possible gastroenteritis (see below for diarrhea) UA with small LE, negative nitrate - Cx pending * Defer antibiotics for now * Monitor VS, CBC 6. Diarrhea Etiology presumed infectious. Likely gastroenteritis, possibly colitis. Unlikely bacterial dysentery by history. * Check C difficile PCR * Monitor I/O * If diarrhea persists, consider Immodium 7. DM Last A1C 7.7 a few months ago * Levemir 7 units BID (home insulin is glargine 15 units daily) * Low dose SSI * Bedside glucose Q6H in ICU, will switch to AC/HS when transitioned to floor care * Hypoglycemia protocol 8. CHF Last echo 2014 with EF 50-55%. No clinical signs of exacerbation at this time * Hold home Coreg and lasix 9. H/o prior stroke * Continue Eliquis, reduce dose given ARF 10. Atrial fibrillation Rate controlled, ventricularly paced * Eliquis as above * Continue amiodarone 11. HTN * Hold home lisinopril/Coreg/Lasix F: As above E: As above N: Diet diabetic/cardiac/renal PPX DVT - On Eliquis GI - PPI while in ICU Code status: Patient has DNR order per caregiver. Son Nick (goes by J) is POA in event of incapacity - [phone]
[2018-02-02 16:10] LABS: Phosphorus 4.9 mg/dL (2.5-4.9)
[2018-02-02] MEDS ORDERED: Dextrose 50% in Water 50 ML Vial IV.PUSH ONE (17:41)
[2018-02-02] MEDS ORDERED: Calcium Chloride Inj 1 GM in Sodium Chlor 0.9% Inj 100 ML IV.SIG ONE (17:41)
--- NOTE | 2018-02-02 17:46 | US ---
EXAM DATE: 02/02/2018 12:00 AM EDT AGE/SEX: 87 years / Male INDICATIONS: Increased BUN/Creatnine. CLINICAL DATA: This is the patient's initial encounter. Patient reports that signs and symptoms have been present for 1 day and indicates a pain score of 0/10. MEDICAL/SURGICAL HISTORY: Congestive heart failure. Hypertension. Chronic kidney disease. Diab etes. Atrial fibrillation. Hyperlipidemia. Stroke. Pacemaker. Bilateral knee replacement. COMPARISON: . MEASUREMENTS: Right Kidney:__9.2 x 5.7 x 5.4 cm Left Kidney:__10.1 x 5.0 x 5.1 cm FINDINGS: Right Kidney: Diffusely echogenic. No hydronephrosis. Numerous simple cysts are seen including one in the mid kidney measuring 44 x 41 x 40 mm. One is seen measuring 14 x 15 x 15 mm also within the mid kidney and one within the lower pole measuring 11 x 12 x 10 mm. Left Kidney: Diffusely echogenic. No hydronephrosis. Simple cysts are seen within the lower pole alfredo uring 13 x 18 x 12 mm and 20 x 18 x 18 mm. One in the upper pole measures 23 x 19 x 18 mm. Bladder: Mildly distended. Other: None. CONCLUSION: 1. Kidneys are echogenic consistent with medical renal disease. 2. Bilateral renal cysts. 3. Mild distention of the urinary bladder. Electronically signed by: Ovi Hampton MD 02/02/2018 5:45 PM EDT
[2018-02-02] MEDS: Insulin NovoLOG Aspart Correctional Sugar Inj SQ SCH ×3 (17:50→23:17)
[2018-02-02] MEDS ORDERED: RESP: Albuterol Concentrated 2.5 MG/0.5 ML Neb NEB ONE (18:30)
[2018-02-02] MEDS: Sodium Bicarbonate 8.4% Inj 75 MEQ in Sodium Chloride 0.45 % Inj 925 ML IV.CONT SCH (19:06)
[2018-02-02] MEDS: Insulin Detemir Inj 1,000 UNIT/10 ML Vial SQ SCH (20:05)
[2018-02-02] MEDS ORDERED: Famotidine 20 MG Tablet PO SCH (21:00)
[2018-02-02] MEDS ORDERED: Senna/Docusate Sodium 8.6/50 MG Tablet PO SCH (21:00)
[2018-02-02] MEDS ORDERED: Famotidine PF Inj 20 MG/2 ML Vial IV.PUSH SCH (21:00)
[2018-02-02 22:44] LABS: Creatinine,Urine Random 48 mg/dL (27-300)
[2018-02-03] MEDS ORDERED: Chlorhexidine Gluconate 2% 1 Pack (2 Cloths) TOPICAL PRN ×3 (04:00)
[2018-02-03] MEDS ORDERED: Chlorhexidine Gluconate 2% 1 Pack (2 Cloths) TOPICAL SCH ×2 (04:00)
[2018-02-03] MEDS: Chlorhexidine Gluconate 2% 1 Pack (2 Cloths) TOPICAL SCH (04:53)
[2018-02-03 05:14] LABS: Baso # (Auto) 0.1 th/mm3 (0.0-0.2); Baso % (Auto) 0.6 % (0.0-2.0); Eos # (Auto) 0.3 th/mm3 (0.0-0.4); Eos % (Auto) 3.2 % (0.0-4.0); Hemoglobin 10.2 gm/dL (13.0-17.0); Lymph # (Auto) 1.6 th/mm3 (1.0-4.8); Lymph % (Auto) 16.6 % (9.0-44.0); Mean Corpuscular Hemoglobin 29.3 pg (27.0-34.0); Mean Corpuscular Volume 88.9 fL (80.0-100.0); Mean Platelet Volume 8.2 fL (7.0-11.0); Mono # (Auto) 0.9 th/mm3 (0.0-0.9); Mono % (Auto) 9.7 % (0.0-8.0); Neut # (Auto) 6.6 th/mm3 (1.8-7.7); Neut % (Auto) 69.9 % (16.0-70.0); Platelet Count 308 th/mm3 (150-450); Red Blood Count 3.48 mil/mm3 (4.50-5.90); Red Cell Distribution Width 15.9 % (11.6-17.2); White Blood Count 9.5 th/mm3 (4.0-11.0)
[2018-02-03 05:39] LABS: Alanine Aminotransferase 25 U/L (12-78); Albumin 2.6 g/dL (3.4-5.0); Anion Gap 10 meq/L (5-15); Aspartate Aminotransferase 22 U/L (15-37); Blood Urea Nitrogen 63 mg/dL (7-18); Calcium 8.8 mg/dL (8.5-10.1); Carbon Dioxide 21.8 meq/L (21.0-32.0); Chloride 111 meq/L (98-107); Glomerular Filtration Rate 22 mL/min (>89); Glucose,Random 112 mg/dL (74-106); Magnesium 2.6 mg/dL (1.5-2.5); Phosphorus 4.7 mg/dL (2.5-4.9); Potassium 5.3 meq/L (3.5-5.1); Sodium 143 meq/L (136-145)
[2018-02-03 05:42] LABS: Alkaline Phosphatase 97 U/L (45-117); Total Protein 6.4 g/dL (6.4-8.2)
[2018-02-03] MEDS: Insulin NovoLOG Aspart Correctional Sugar Inj SQ SCH ×3 (06:01→17:01)
[2018-02-03] MEDS: Amiodarone 200 MG Tablet PO SCH (07:59)
[2018-02-03] MEDS: Insulin Detemir Inj 1,000 UNIT/10 ML Vial SQ SCH ×2 (08:00→21:05)
[2018-02-03] MEDS ORDERED: Carvedilol 6.25 MG Tablet PO SCH (09:00)
[2018-02-03] MEDS: Sodium Bicarbonate 8.4% Inj 75 MEQ in Sodium Chloride 0.45 % Inj 925 ML IV.CONT SCH (10:22)
--- NOTE | 2018-02-03 11:05 | P.PNFP ---
Subjective Interval history: Patient appears to be doing much better today, returning to his baseline mental status which is pleasantly confused. He does complain of some mild lower abdominal pain that is intermittent and cramping, otherwise he has no complaints today. He denies chest pain or palpitations, denies shortness of breath, denies fevers or chills, denies pain other than the abdominal pain described above. In summary, this is an 87-year-old male who presented to the hospital with altered mental status and shortness of breath associated with fatigue/global weakness. He has a history of previous CVA and dementia requiring a caregiver who gives most of his history. His caregiver states that over the last week he has been having progressive shortness of breath with minimal exertion as well as generalized fatigue and weakness. Caregiver also notes diarrhea for the last 5 days. In the emergency department, he was found to be severely dehydrated with acute renal injury requiring aggressive fluid hydration and treatment for electrolyte abnormalities including hyperkalemia and hypermagnesemia Results - Labs Result diagrams: 02/03/18 05:00 02/03/18 05:00 Abnormal lab results 02/02/18 02/02/18 02/02/18 Range/Units 11:52 11:52 14:10 WBC 14.6 H (4.0-11.0) th/mm3 RBC 3.72 L (4.50-5.90) mil/mm3 Hgb 11.0 L (13.0-17.0) gm/dL Hct 33.4 L (39.0-51.0) % Neut % (Auto) 76.9 H (16.0-70.0) % [place] % (Auto) 8.7 H (0.0-8.0) % Neut # (Auto) 11.2 H (1.8-7.7) th/mm3 [place] # (Auto) 1.3 H (0.0-0.9) th/mm3 Eos # (Auto) 0.5 H (0.0-0.4) th/mm3 APTT (24.3-30.1) sec Potassium 6.7 H* (3.5-5.1) meq/L Chloride 109 H (98-107) meq/L Carbon Dioxide 18.0 L (21.0-32.0) meq/L BUN 73 H (7-18) mg/dL Creatinine 3.67 H (0.60-1.30) mg/dL Estimated GFR 16 L (>89) mL/min POC Glucose (68-110) mg/dl Random Glucose 145 H (74-106) mg/dL Magnesium 2.9 H (1.5-2.5) mg/dL Total Creatine Kinase (39-308) U/L Troponin I Less than 0.02 L (0.02-0.05) ng/mL Albumin 3.1 L (3.4-5.0) g/dL Urine Clarity Cloudy H (Clear) Urine Occult Blood Moderate H (Negative) Ur Leukocyte Esterase Trace H (Negative) Urine RBC 20 H (0-3) /hpf Urine WBC 8 H (0-5) /hpf Urine Bacteria Rare H (None) /hpf Urine Mucus Few H (Occasional) /lpf 02/02/18 02/02/18 02/02/18 Range/Units 15:38 16:43 17:43 WBC (4.0-11.0) th/mm3 RBC (4.50-5.90) mil/mm3 Hgb (13.0-17.0) gm/dL Hct (39.0-51.0) % Neut % (Auto) (16.0-70.0) % [place] % (Auto) (0.0-8.0) % Neut # (Auto) (1.8-7.7) th/mm3 [place] # (Auto) (0.0-0.9) th/mm3 Eos # (Auto) (0.0-0.4) th/mm3 APTT (24.3-30.1) sec Potassium 6.2 H (3.5-5.1) meq/L Chloride (98-107) meq/L Carbon Dioxide (21.0-32.0) meq/L BUN (7-18) mg/dL Creatinine (0.60-1.30) mg/dL Estimated GFR (>89) mL/min POC Glucose 127 H (68-110) mg/dl Random Glucose (74-106) mg/dL Magnesium (1.5-2.5) mg/dL Total Creatine Kinase 34 L (39-308) U/L Troponin I (0.02-0.05) ng/mL Albumin (3.4-5.0) g/dL Urine Clarity (Clear) Urine Occult Blood (Negative) Ur Leukocyte Esterase (Negative) Urine RBC (0-3) /hpf Urine WBC (0-5) /hpf Urine Bacteria (None) /hpf Urine Mucus (Occasional) /lpf 02/02/18 02/02/18 02/02/18 Range/Units 20:05 22:14 23:16 WBC (4.0-11.0) th/mm3 RBC (4.50-5.90) mil/mm3 Hgb (13.0-17.0) gm/dL Hct (39.0-51.0) % Neut % (Auto) (16.0-70.0) % [place] % (Auto) (0.0-8.0) % Neut # (Auto) (1.8-7.7) th/mm3 [place] # (Auto) (0.0-0.9) th/mm3 Eos # (Auto) (0.0-0.4) th/mm3 APTT (24.3-30.1) sec Potassium 5.5 H (3.5-5.1) meq/L Chloride (98-107) meq/L Carbon Dioxide (21.0-32.0) meq/L BUN (7-18) mg/dL Creatinine (0.60-1.30) mg/dL Estimated GFR (>89) mL/min POC Glucose 237 H 146 H (68-110) mg/dl Random Glucose (74-106) mg/dL Magnesium (1.5-2.5) mg/dL Total Creatine Kinase (39-308) U/L Troponin I (0.02-0.05) ng/mL Albumin (3.4-5.0) g/dL Urine Clarity (Clear) Urine Occult Blood (Negative) Ur Leukocyte Esterase (Negative) Urine RBC (0-3) /hpf Urine WBC (0-5) /hpf Urine Bacteria (None) /hpf Urine Mucus (Occasional) /lpf 02/03/18 02/03/18 02/03/18 Range/Units 05:00 05:00 05:00 WBC (4.0-11.0) th/mm3 RBC 3.48 L (4.50-5.90) mil/mm3 Hgb 10.2 L (13.0-17.0) gm/dL Hct 31.0 L (39.0-51.0) % Neut % (Auto) (16.0-70.0) % [place] % (Auto) 9.7 H (0.0-8.0) % Neut # (Auto) (1.8-7.7) th/mm3 [place] # (Auto) (0.0-0.9) th/mm3 Eos # (Auto) (0.0-0.4) th/mm3 APTT 34.2 H (24.3-30.1) sec Potassium 5.3 H (3.5-5.1) meq/L Chloride 111 H (98-107) meq/L Carbon Dioxide (21.0-32.0) meq/L BUN 63 H (7-18) mg/dL Creatinine 2.76 H (0.60-1.30) mg/dL Estimated GFR 22 L (>89) mL/min POC Glucose (68-110) mg/dl Random Glucose 112 H (74-106) mg/dL Magnesium 2.6 H (1.5-2.5) mg/dL Total Creatine Kinase (39-308) U/L Troponin I (0.02-0.05) ng/mL Albumin 2.6 L (3.4-5.0) g/dL Urine Clarity (Clear) Urine Occult Blood (Negative) Ur Leukocyte Esterase (Negative) Urine RBC (0-3) /hpf Urine WBC (0-5) /hpf Urine Bacteria (None) /hpf Urine Mucus (Occasional) /lpf Short CBC 02/02/18 02/03/18 Range/Units 11:52 05:00 WBC 14.6 H 9.5 (4.0-11.0) th/mm3 Hgb 11.0 L 10.2 L (13.0-17.0) gm/dL Hct 33.4 L 31.0 L (39.0-51.0) % Plt Count 435 308 (150-450) th/mm3 BMP 02/02/18 02/02/18 02/02/18 11:52 16:43 22:14 Sodium 137 Potassium 6.7 H* 6.2 H 5.5 H Chloride 109 H Carbon Dioxide 18.0 L BUN 73 H Creatinine 3.67 H Calcium 8.6 02/03/18 05:00 Sodium 143 Potassium 5.3 H Chloride 111 H Carbon Dioxide 21.8 BUN 63 H Creatinine 2.76 H Calcium 8.8 Cardiac Enzymes 02/02/18 02/02/18 02/02/18 Range/Units 11:52 15:38 15:38 Total Creatine Kinase Cancelled 34 L Troponin I Less than 0.02 L (0.02-0.05) ng/mL Liver Function 02/02/18 02/03/18 Range/Units 11:52 05:00 Total Bilirubin 0.2 0.2 (0.2-1.0) mg/dL AST 26 22 (15-37) U/L ALT 32 25 (12-78) U/L Alkaline Phosphatase 113 97 (45-117) U/L Albumin 3.1 L 2.6 L (3.4-5.0) g/dL Urine 02/02/18 Range/Units 14:10 Urine Color Yellow (Yellw/Straw) Urine Clarity Cloudy H (Clear) Urine pH 5.0 (5.0-8.5) Ur Specific [place] 1.010 (1.002-1.035) Urine Protein Negative (Neg-Trace) mg/dL Urine Glucose (UA) Negative (Negative) mg/dL - Imaging Impressions Abdomen/Bladder Ultrasound 02/02/18 00:00 CONCLUSION: 1. Kidneys are echogenic consistent with medical renal disease. 2. Bilateral renal cysts. 3. Mild distention of the urinary bladder. Chest X-Ray 02/02/18 12:23 CONCLUSION: 1. No acute abnormality or significant interval change. Physical Exam Vital signs: Vital Signs 02/02/18 11:30 02/02/18 11:47 02/02/18 12:31 Temperature 96.5 F L Pulse Rate 68 71 69 Respiratory Rate 18 18 20 Blood Pressure 72/41 L 99/54 L 100/52 L Pulse Oximetry 100 98 95 02/02/18 13:36 02/02/18 13:37 02/02/18 14:30 Temperature 97.5 F L Pulse Rate 68 69 70 Respiratory Rate 18 25 H Blood Pressure 122/61 153/69 H Pulse Oximetry 96 95 99 02/02/18 14:53 02/02/18 15:00 02/02/18 16:00 Temperature 97.8 F Pulse Rate 69 69 69 Respiratory Rate 29 H 24 25 H Blood Pressure 145/70 H 140/68 Pulse Oximetry 99 99 96 02/02/18 17:00 02/02/18 18:00 02/02/18 19:00 Temperature Pulse Rate 69 69 73 Respiratory Rate 24 28 H 46 H Blood Pressure 148/73 H 132/65 Pulse Oximetry 95 95 97 02/02/18 19:06 02/02/18 19:07 02/02/18 19:32 Temperature Pulse Rate 70 71 70 Respiratory Rate 26 H 28 H 20 Blood Pressure 152/66 H 137/71 Pulse Oximetry 99 98 02/02/18 19:35 02/02/18 20:00 02/02/18 21:00 Temperature 97.5 F L Pulse Rate 69 69 Respiratory Rate 28 H 28 H Blood Pressure 150/71 H 131/65 Pulse Oximetry 99 99 97 02/02/18 22:00 02/02/18 23:00 02/02/18 23:40 Temperature Pulse Rate 69 69 Respiratory Rate 35 H 24 20 Blood Pressure 135/83 144/69 H Pulse Oximetry 99 99 02/03/18 00:00 02/03/18 01:00 02/03/18 02:00 Temperature 97.7 F Pulse Rate 69 89 69 Respiratory Rate 23 21 23 Blood Pressure 150/74 H 166/80 H 130/67 Pulse Oximetry 100 99 100 02/03/18 03:00 02/03/18 03:52 02/03/18 04:00 Temperature Pulse Rate 69 72 69 Respiratory Rate 27 H 22 20 Blood Pressure 194/91 H 144/76 H Pulse Oximetry 100 100 02/03/18 05:00 02/03/18 06:00 02/03/18 08:00 Temperature 98.6 F Pulse Rate 69 69 70 Respiratory Rate 26 H 22 Blood Pressure 149/72 H 169/74 H Pulse Oximetry 100 100 02/03/18 08:29 Temperature Pulse Rate 71 Respiratory Rate 16 Blood Pressure Pulse Oximetry Intake & Output 02/02/18 02/03/18 02/03/18 18:59 06:59 18:59 Intake Total 1480 / 1480 488 / 488 1000 / 1000 Balance 1480 / 1480 488 / 488 1000 / 1000 Weight 81.647 kg 87 kg Intake: IV 1000 / 1000 488 / 488 1000 / 1000 Sodium Bicarbonate 8.4% Inj 75 1000 / 1000 MEQ In 1/2 Normal Saline Inj 925 ML @ 84 mls/hr IV.CONT . [id number] [facility] Rx#:[id number] NS Inj 1,000 ML @ Wide Open IV. 1000 / 1000 SIG BOLUS ONE Rx#:[id number] Oral 480 / 480 Other: Date of Last Bowel Movement 02/03/18 Narrative: CONSTITUTIONAL/GEN: Obese male, sitting up in bed in no obvious distress.. EYES: conjunctiva normal, PERRLA, EOMI. ENT: Mouth and pharynx normal. LUNGS: clear A-P, respiratory effort is normal. CARDIOVASCULAR: RR without murmur or gallop. No significant edema. GI/ABD: soft without masses, without organomegaly. Nontender to palpation in all 4 quadrants. No rebound or guarding. Bowel sounds present throughout. : no CVA tenderness SKIN: color normal, no rashes noted. PSYCH/MENTAL STATUS: Alert and oriented x 3. Assessment and Plan - Assessment (1) Renal failure (ARF), acute on chronic Code(s): N17.9 - Acute kidney failure, unspecified; N18.9 - Chronic kidney disease, unspecified Status: Acute Plan: Patient admitted to the [facility] and initial management by Dr. Mcmillan Patient admitted with initial creatinine of 3.67 and GFR of 16 -Given 2 liters normal saline bolus in the emergency department as well as sodium bicarb -Currently receiving sodium bicarb 75 mEq at 84 mL/hour Renal function has improved, today's creatinine 2.76 with a GFR of 22 Renal ultrasound performed showing echogenic kidneys consistent with medical renal disease and bilateral renal cysts Continue to avoid nephrotoxic agents Continue IV fluids Monitor kidney function daily (2) Acute hypotension Code(s): I95.9 - Hypotension, unspecified Status: Acute Plan: Blood pressure has responded to aggressive fluid hydration No evidence of infection Blood cultures are pending Urine cultures are pending Restart home carvedilol today at 6.25 mg p.o. twice daily Continue to hold BRANDYN inhibitor due to renal function (3) Acute hyperkalemia Code(s): E87.5 - Hyperkalemia Status: Acute Plan: Potassium improved to 5.3 today -Presented with potassium of 6.7 and received Kayexalate, calcium, bicarbonate, insulin/glucose in the emergency department -EKG without changes consistent with hyperkalemia 10 you to monitor, consider repeat dose of Kayexalate if potassium remains elevated (4) Diarrhea Code(s): R19.7 - Diarrhea, unspecified Status: Acute Plan: Patient with history of diarrhea prior to admission to the hospital -C. difficile ordered and pending -Abdominal ultrasound unremarkable (5) Hypermagnesemia Code(s): E83.41 - Hypermagnesemia Status: Acute Plan: Improved, was 2.9 on arrival and today is 2.6 Continue IV fluids as above (6) Normocytic anemia Code(s): D64.9 - Anemia, unspecified Status: Acute Plan: Likely due to chronic renal disease Monitor CBC daily and transfuse as needed (7) Congestive heart failure Code(s): I50.9 - Heart failure, unspecified Status: Acute Plan: No overt signs of fluid overload at this time Echocardiogram from 2015 reveals EF of 50-55% with LVH and left atrial dilatation Troponin on arrival less than 0.02 EKG shows paced ventricular rhythm (8) Diabetes type 2, controlled Code(s): E11.9 - Type 2 diabetes mellitus without complications Status: Acute Plan: Levemir 7 units twice daily POC glucose checks with sliding scale insulin (9) History of CVA (cerebrovascular accident) Code(s): Z86.73 - Personal history of transient ischemic attack (TIA), and cerebral infarction without residual deficits Status: Acute Plan: Continue home Eliquis, carvedilol, (10) Essential hypertension Code(s): I10 - Essential (primary) hypertension Status: Chronic Plan: Patient initially presented with hypotension and blood pressure medications were held Responded well to IV fluids, reinitiated carvedilol 6.25 mg p.o. twice daily Continue to hold BRANDYN inhibitor due to renal function (11) Leukocytosis Code(s): D72.829 - Elevated white blood cell count, unspecified Status: Acute Plan: Resolved, likely stress-induced (1) Renal failure (ARF), acute on chronic Qualifiers: Acute renal failure type: unspecified Chronic kidney disease stage: stage 3 ( moderate) Qualified Code(s): N17.9 - Acute kidney failure, unspecified; N18.3 - Chronic kidney disease, stage 3 (moderate) (8) Diabetes type 2, controlled Qualifiers: Diabetes mellitus rn long term care insulin use: with skilled nursing use Diabetes mellitus complication status: without complication Qualified Code(s): E11.9 - Type 2 diabetes mellitus without complications; Z79.4 - detention (current) use of insulin (11) Leukocytosis Qualifiers: Leukocytosis type: unspecified Qualified Code(s): D72.829 - Elevated white blood cell count, unspecified
--- NOTE | 2018-02-03 13:20 | ECG ---
Date Performed: 02/02/2018 Time Performed: 11:47:22 PTAGE: 87 years EKG: ELECTRONIC ATRIAL PACEMAKER ELECTRONIC VENTRICULAR PACEMAKER MARKED ST ELEVATION, CONSIDER LATERAL INJURY ACUTE VT Pace rhythm is new since prior tracing Clinical correlation is recommen ded PREVIOUS TRACING : 03/21/2015 06.07 DOCTOR: Timo Barriga Interpretating Date/Time 02/03/2018 13:19:38
--- NOTE | 2018-02-03 14:36 | P.PNADD ---
Addendum to Inpatient Note Reason for Addendum: Corrected Documentation Additional information: Due to low BP currently/this afternoon, coreg (home med) held.
--- NOTE | 2018-02-03 14:42 | P.PNCC ---
Subjective Subjective Remarks/Hospital Course: This is a 87-year-old male. Full code. Admission 02/02/2018. Past medical history includes hypertension, hyperlipidemia, coronary artery disease, atrial fibrillation currently with a atrioventricular pacemaker, diabetes mellitus and prior history of CVA with no current focal neurological deficits. Patient presents to [facility] with 2-week history of generalized weakness/ fatigue. Patient has had a very poor appetite and intermittent diarrhea according to 2 care provider at bedside. He was noted to be initially hypotensive with a systolic blood pressure in the 60s. Received 2 L normal saline is currently with a systolic blood sugar 120 and feeling much improved. Initial EKG revealed a paced rhythm. Troponin was 0.02. BMP revealed acute kidney with a creatinine of 3.7. Baseline 1.6. Potassium is 6.7. Patient has a leukocytosis of 14,000 and normocytic anemia. UA is currently pending. Denies any chest pain, abdominal pain. Patient received with potassium binding resins, bicarbonate, D50 and insulin. Recheck potassium is currently pending. We are asked to admit the patient by the ER physician. 02/03: Lying comfortably in bed no acute distress. Potassium significantly improved 5.3 today. Creatinine also improving, making urine. Patient appears to be back to his baseline Objective Vital Signs / I&O: Vital Signs 02/02/18 14:53 02/02/18 15:00 02/02/18 16:00 Temperature 97.8 F Pulse Rate 69 69 69 Respiratory Rate 29 H 24 25 H Blood Pressure 145/70 H 140/68 Pulse Oximetry 99 99 96 02/02/18 17:00 02/02/18 18:00 02/02/18 19:00 Temperature Pulse Rate 69 69 73 Respiratory Rate 24 28 H 46 H Blood Pressure 148/73 H 132/65 Pulse Oximetry 95 95 97 02/02/18 19:06 02/02/18 19:07 02/02/18 19:32 Temperature Pulse Rate 70 71 70 Respiratory Rate 26 H 28 H 20 Blood Pressure 152/66 H 137/71 Pulse Oximetry 99 98 02/02/18 19:35 02/02/18 20:00 02/02/18 21:00 Temperature 97.5 F L Pulse Rate 69 69 Respiratory Rate 28 H 28 H Blood Pressure 150/71 H 131/65 Pulse Oximetry 99 99 97 02/02/18 22:00 02/02/18 23:00 02/02/18 23:40 Temperature Pulse Rate 69 69 Respiratory Rate 35 H 24 20 Blood Pressure 135/83 144/69 H Pulse Oximetry 99 99 02/03/18 00:00 02/03/18 01:00 02/03/18 02:00 Temperature 97.7 F Pulse Rate 69 89 69 Respiratory Rate 23 21 23 Blood Pressure 150/74 H 166/80 H 130/67 Pulse Oximetry 100 99 100 02/03/18 03:00 02/03/18 03:52 02/03/18 04:00 Temperature Pulse Rate 69 72 69 Respiratory Rate 27 H 22 20 Blood Pressure 194/91 H 144/76 H Pulse Oximetry 100 100 02/03/18 05:00 02/03/18 06:00 02/03/18 08:00 Temperature 98.6 F Pulse Rate 69 69 70 Respiratory Rate 26 H 22 Blood Pressure 149/72 H 169/74 H Pulse Oximetry 100 100 02/03/18 08:29 02/03/18 10:49 02/03/18 12:00 Temperature 98.3 F Pulse Rate 71 57 L Respiratory Rate 16 18 24 Blood Pressure 100/55 L Pulse Oximetry 100 Intake & Output 02/02/18 02/03/18 02/03/18 18:59 06:59 18:59 Intake Total 1480 / 1480 488 / 488 1000 / 1000 Balance 1480 / 1480 488 / 488 1000 / 1000 Weight 81.647 kg 87 kg Intake: IV 1000 / 1000 488 / 488 1000 / 1000 Sodium Bicarbonate 8.4% Inj 75 1000 / 1000 MEQ In 1/2 Normal Saline Inj 925 ML @ 84 mls/hr IV.CONT . [id number] COUNT INCLUDES THE [facility] Rx#:[id number] NS Inj 1,000 ML @ Wide Open IV. 1000 / 1000 SIG BOLUS ONE Rx#:[id number] Oral 480 / 480 Other: Date of Last Bowel Movement 02/03/18 Result Diagrams: 02/03/18 05:00 02/03/18 05:00 Objective Remarks: - Constitutional no acute distress, lying in bed - Routine HEENT Exam Head: Present: normocephalic, atraumatic ENT: Present: mucous membranes dry - Routine Neck Exam Present: supple, full ROM. Absent: JVD - Routine Respiratory Exam Present: CTA bilaterally. Absent: accessory muscle use, rhonchi - Routine Cardiovascular Exam Comments: Atrioventricular paced rhythm. No murmurs. - Routine Abdominal Exam Present: soft, normoactive bowel sounds. Absent: tenderness - Routine Extremities Exam Absent: cyanosis, clubbing, edema - Routine Skin Exam Present: intact - Routine Neurological Exam Present: alert, oriented appears to be hard of hearing. Absent: sensory deficit , motor deficit Assessment and Plan - Problem List (1) Coronary artery disease Code(s): I25.10 - Atherosclerotic heart disease of [place] coronary artery without angina pectoris Status: Chronic (2) Essential hypertension Code(s): I10 - Essential (primary) hypertension Status: Chronic (3) Hyperlipidemia Code(s): E78.5 - Hyperlipidemia, unspecified Status: Chronic (4) Leukocytosis Code(s): D72.829 - Elevated white blood cell count, unspecified Status: Acute (5) Normocytic anemia Code(s): D64.9 - Anemia, unspecified Status: Acute (6) Hypermagnesemia Code(s): E83.41 - Hypermagnesemia Status: Acute (7) Acute hypotension Code(s): I95.9 - Hypotension, unspecified Status: Acute (8) Acute hyperkalemia Code(s): E87.5 - Hyperkalemia Status: Acute (9) Renal failure (ARF), acute on chronic Code(s): N17.9 - Acute kidney failure, unspecified; N18.9 - Chronic kidney disease, unspecified Status: Acute - Assessment and Plan Plan: Neuro/Psych: History of CVA Acetaminophen 650 mg p.o. every 6 hours as needed fever Hydrocodone/acetaminophen 5/325 1 tablet every 4 hours as needed pain 1 through 5 Morphine sulfate 2 mg IV every 2 hours as needed pain 6 through 10 CV: History of atrial fibrillation Status post atrial/ventricular pacemaker Coronary artery disease Essential hypertension Hyperlipidemia Obtain home medications Received 2 L normal saline wide open ED. continue maintenance IV fluids Initial troponin 0 0.02. EKG revealed atrial ventricular paced rhythm. Echocardiogram 2014 revealed EF of 50-55%. LVH. LA dilatation. PAP 33 mmHg. Resp: Nasal cannula to maintain saturations greater than equal to 90% Incentive spirometry while awake As needed albuterol aerosols every 2 hours as needed GI: Diarrhea Check C. difficile if persistent diarrhea Liver function test within normal limits. Advance diet to diabetic/cardiac diet : Straight catheterization as needed Endo: History of diabetes mellitus Sliding scale insulin Accu-Cheks to maintain euglycemia/aspart insulin medium protocol Renal: Acute kidney injury in the setting of chronic kidney disease stage III a F/u renal ultrasound and urine eosinophils and sodium and creatinine Obtain home medications Avoid nephrotoxic medications Monitor urine output Accurate I's and O's Recheck BUN and creatinine in a.m. 11/04 Heme: Normocytic anemia Leukocytosis Monitor CBC daily. Follow trends. No indication for transfusion of blood products at this time. ID: Monitor for signs of infection MSK: PT evaluate and treat. FEN: Acute hyperkalemia Acute hypermagnesia Recheck potassium at AM Received 2 L normal saline in ED. Received D50/insulin/bicarbonate, calcium and potassium binder EKG revealed atrial and ventricularly paced rhythm. Currently on 0.9% NaCl at 84 cc an hour Access Utilize peripheral IV. Central line if indicated Prophylaxis -GI -pantoprazole -DVT-SCD/enoxaparin Level 2 Critical care will sign off, family practice is primary Okay to transfer from ICU from critical care standpoint (1) Coronary artery disease Qualifiers: Coronary Disease-Associated Artery/Lesion type: [place] artery [place] vs. transplanted heart: [place] heart Associated angina: angina presence unspecified Qualified Code(s): I25.10 - Atherosclerotic heart disease of [place] coronary artery without angina pectoris (3) Hyperlipidemia Qualifiers: Hyperlipidemia type: unspecified Qualified Code(s): E78.5 - Hyperlipidemia, unspecified (4) Leukocytosis Qualifiers: Leukocytosis type: unspecified Qualified Code(s): D72.829 - Elevated white blood cell count, unspecified (9) Renal failure (ARF), acute on chronic Qualifiers: Acute renal failure type: unspecified Chronic kidney disease stage: stage 3 ( moderate) Qualified Code(s): N17.9 - Acute kidney failure, unspecified; N18.3 - Chronic kidney disease, stage 3 (moderate)
[2018-02-04] MEDS: Insulin NovoLOG Aspart Correctional Sugar Inj SQ SCH ×5 (01:07→23:42)
[2018-02-04] MEDS: Chlorhexidine Gluconate 2% 1 Pack (2 Cloths) TOPICAL SCH (04:50)
[2018-02-04 06:45] LABS: Alanine Aminotransferase 24 U/L (12-78); Albumin 2.8 g/dL (3.4-5.0); Alkaline Phosphatase 92 U/L (45-117); Anion Gap 9 meq/L (5-15); Aspartate Aminotransferase 24 U/L (15-37); Blood Urea Nitrogen 51 mg/dL (7-18); Calcium 8.7 mg/dL (8.5-10.1); Carbon Dioxide 23.9 meq/L (21.0-32.0); Chloride 111 meq/L (98-107); Glomerular Filtration Rate 28 mL/min (>89); Glucose,Random 94 mg/dL (74-106); Potassium 4.9 meq/L (3.5-5.1); Sodium 144 meq/L (136-145); Total Protein 6.5 g/dL (6.4-8.2)
[2018-02-04] MEDS: Amiodarone 200 MG Tablet PO SCH (08:55)
[2018-02-04] MEDS: Insulin Detemir Inj 1,000 UNIT/10 ML Vial SQ SCH ×2 (08:56→21:22)
[2018-02-04] MEDS ORDERED: Carvedilol 6.25 MG Tablet PO SCH ×2 (09:00→10:00)
[2018-02-04] MEDS: Sod Chloride 0.9% Inj 1,000 ML IV.CONT SCH ×2 (11:00→23:42)
--- NOTE | 2018-02-04 11:13 | P.PNFP ---
Subjective Interval history: Vitals stable overnight. No acute events. Patient states he has problems urinating but had episodes of urinary incontinence. Denies pain. No episodes of diarrhea noted by nursing. <Brandie Roberts N - 02/04/18 11:12> Results - Labs Result diagrams: 02/03/18 05:00 02/04/18 05:23 <Kye Joyner - 02/04/18 14:34> Abnormal lab results 02/03/18 02/03/18 02/04/18 Range/Units 16:56 21:02 00:25 Chloride (98-107) meq/L BUN (7-18) mg/dL Creatinine (0.60-1.30) mg/dL Estimated GFR (>89) mL/min POC Glucose 125 H 157 H 127 H (68-110) mg/dl Albumin (3.4-5.0) g/dL 02/04/18 02/04/18 Range/Units 05:23 12:29 Chloride 111 H (98-107) meq/L BUN 51 H (7-18) mg/dL Creatinine 2.27 H (0.60-1.30) mg/dL Estimated GFR 28 L (>89) mL/min POC Glucose 111 H (68-110) mg/dl Albumin 2.8 L (3.4-5.0) g/dL BMP 02/04/18 05:23 Sodium 144 Potassium 4.9 Chloride 111 H Carbon Dioxide 23.9 BUN 51 H Creatinine 2.27 H Calcium 8.7 Liver Function 02/04/18 Range/Units 05:23 Total Bilirubin 0.3 (0.2-1.0) mg/dL AST 24 (15-37) U/L ALT 24 (12-78) U/L Alkaline Phosphatase 92 (45-117) U/L Albumin 2.8 L (3.4-5.0) g/dL <Kye Joyner - 02/04/18 14:34> Abnormal lab results 02/03/18 02/03/18 02/03/18 Range/Units 13:39 16:56 21:02 Chloride (98-107) meq/L BUN (7-18) mg/dL Creatinine (0.60-1.30) mg/dL Estimated GFR (>89) mL/min POC Glucose 111 H 125 H 157 H (68-110) mg/dl Albumin (3.4-5.0) g/dL 02/04/18 02/04/18 Range/Units 00:25 05:23 Chloride 111 H (98-107) meq/L BUN 51 H (7-18) mg/dL Creatinine 2.27 H (0.60-1.30) mg/dL Estimated GFR 28 L (>89) mL/min POC Glucose 127 H (68-110) mg/dl Albumin 2.8 L (3.4-5.0) g/dL BMP 02/04/18 05:23 Sodium 144 Potassium 4.9 Chloride 111 H Carbon Dioxide 23.9 BUN 51 H Creatinine 2.27 H Calcium 8.7 Liver Function 02/04/18 Range/Units 05:23 Total Bilirubin 0.3 (0.2-1.0) mg/dL AST 24 (15-37) U/L ALT 24 (12-78) U/L Alkaline Phosphatase 92 (45-117) U/L Albumin 2.8 L (3.4-5.0) g/dL <Brandie Roberts N - 02/04/18 11:12> Physical Exam Vital signs: Vital Signs 02/03/18 15:30 02/03/18 16:00 02/03/18 18:00 Temperature Pulse Rate 69 69 70 Respiratory Rate 16 20 Blood Pressure 97/56 L Pulse Oximetry 100 02/03/18 19:00 02/03/18 19:45 02/03/18 20:00 Temperature Pulse Rate 73 70 69 Respiratory Rate 30 H 18 23 Blood Pressure 119/91 H 111/57 L Pulse Oximetry 99 98 95 02/03/18 21:00 02/03/18 22:00 02/03/18 23:00 Temperature Pulse Rate 70 69 69 Respiratory Rate 22 20 25 H Blood Pressure 123/63 114/59 L 123/68 Pulse Oximetry 96 95 96 02/04/18 00:00 02/04/18 01:00 02/04/18 01:02 Temperature 97.7 F Pulse Rate 72 69 71 Respiratory Rate 23 22 27 H Blood Pressure 133/77 132/62 Pulse Oximetry 97 98 96 02/04/18 02:00 02/04/18 03:00 02/04/18 04:00 Temperature Pulse Rate 69 69 69 Respiratory Rate 22 20 23 Blood Pressure 117/58 L 115/56 L 127/58 L Pulse Oximetry 96 96 98 02/04/18 05:00 02/04/18 06:00 02/04/18 07:00 Temperature Pulse Rate 69 69 69 Respiratory Rate 22 25 H 26 H Blood Pressure 128/59 L 130/60 Pulse Oximetry 98 96 96 02/04/18 07:01 02/04/18 08:00 02/04/18 08:01 Temperature 96.3 F L Pulse Rate 69 72 69 Respiratory Rate 22 27 H 24 Blood Pressure 157/73 H 171/79 H 171/79 H Pulse Oximetry 96 96 96 02/04/18 08:14 02/04/18 08:35 02/04/18 08:50 Temperature Pulse Rate 69 72 Respiratory Rate 16 28 H Blood Pressure 135/74 Pulse Oximetry 95 97 02/04/18 09:00 02/04/18 10:00 02/04/18 11:00 Temperature Pulse Rate 70 69 70 Respiratory Rate 23 31 H 21 Blood Pressure 134/66 144/62 H 152/70 H Pulse Oximetry 96 97 96 02/04/18 12:00 02/04/18 14:00 Temperature 97.9 F Pulse Rate 69 72 Respiratory Rate 18 Blood Pressure 156/72 H Pulse Oximetry 97 Intake & Output 02/03/18 02/04/18 02/04/18 18:59 06:59 18:59 Intake Total 1000 / 1000 1480 / 1480 Output Total 300 / 300 Balance 1000 / 1000 1180 / 1180 Weight 87 kg Intake: IV 1000 / 1000 1000 / 1000 Sodium Bicarbonate 8.4% Inj 75 1000 / 1000 1000 / 1000 MEQ In 1/2 Normal Saline Inj 925 ML @ 84 mls/hr IV.CONT . [id number] [facility] Rx#:[id number] Oral 480 / 480 Output: Urine 300 / 300 Other: # Voids 6 # Incontinent Voids 3 Date of Last Bowel Movement 02/03/18 02/04/18 02/04/18 # Bowel Movements 1 <Kye Joyner - 02/04/18 14:34> Vital Signs 02/03/18 12:00 02/03/18 14:00 02/03/18 15:30 Temperature 98.3 F Pulse Rate 57 L 69 69 Respiratory Rate 24 16 Blood Pressure 100/55 L Pulse Oximetry 100 02/03/18 16:00 02/03/18 18:00 02/03/18 19:00 Temperature Pulse Rate 69 70 73 Respiratory Rate 20 30 H Blood Pressure 97/56 L 119/91 H Pulse Oximetry 100 99 02/03/18 19:45 02/03/18 20:00 02/03/18 21:00 Temperature Pulse Rate 70 69 70 Respiratory Rate 18 23 22 Blood Pressure 111/57 L 123/63 Pulse Oximetry 98 95 96 02/03/18 22:00 02/03/18 23:00 02/04/18 00:00 Temperature 97.7 F Pulse Rate 69 69 72 Respiratory Rate 20 25 H 23 Blood Pressure 114/59 L 123/68 133/77 Pulse Oximetry 95 96 97 02/04/18 01:00 02/04/18 01:02 02/04/18 02:00 Temperature Pulse Rate 69 71 69 Respiratory Rate 22 27 H 22 Blood Pressure 132/62 117/58 L Pulse Oximetry 98 96 96 02/04/18 03:00 02/04/18 04:00 02/04/18 05:00 Temperature Pulse Rate 69 69 69 Respiratory Rate 20 23 22 Blood Pressure 115/56 L 127/58 L 128/59 L Pulse Oximetry 96 98 98 02/04/18 06:00 02/04/18 07:00 02/04/18 07:01 Temperature Pulse Rate 69 69 69 Respiratory Rate 25 H 26 H 22 Blood Pressure 130/60 157/73 H Pulse Oximetry 96 96 96 02/04/18 08:00 02/04/18 08:01 02/04/18 08:14 Temperature 96.3 F L Pulse Rate 72 69 Respiratory Rate 27 H 24 Blood Pressure 171/79 H 171/79 H Pulse Oximetry 96 96 95 02/04/18 08:35 02/04/18 08:50 02/04/18 09:00 Temperature Pulse Rate 69 72 70 Respiratory Rate 16 28 H 23 Blood Pressure 135/74 134/66 Pulse Oximetry 97 96 Intake & Output 02/03/18 02/04/18 02/04/18 18:59 06:59 18:59 Intake Total 1000 / 1000 1480 / 1480 Output Total 300 / 300 Balance 1000 / 1000 1180 / 1180 Weight 87 kg Intake: IV 1000 / 1000 1000 / 1000 Sodium Bicarbonate 8.4% Inj 75 1000 / 1000 1000 / 1000 MEQ In 1/2 Normal Saline Inj 925 ML @ 84 mls/hr IV.CONT . [id number] [facility] Rx#:[id number] Oral 480 / 480 Output: Urine 300 / 300 Other: # Voids 6 # Incontinent Voids 3 Date of Last Bowel Movement 02/03/18 02/04/18 02/04/18 # Bowel Movements 1 <Brandie Roberts N - 02/04/18 11:12> Narrative: CONSTITUTIONAL/GEN: Obese male, sitting up in bed in no obvious distress.. EYES: conjunctiva normal, PERRLA, EOMI. ENT: Mouth and pharynx normal. LUNGS: coarse lung sounds bilaterally at the lower lung bases. CARDIOVASCULAR: RR without murmur or gallop. No significant edema. GI/ABD: soft without masses, without organomegaly. Nontender to palpation in all 4 quadrants. No rebound or guarding. Bowel sounds present throughout. : no CVA tenderness SKIN: color normal, no rashes noted. PSYCH/MENTAL STATUS: <Brandie Roberts N - 02/04/18 11:12> Assessment and Plan - Assessment (1) Renal failure (ARF), acute on chronic Code(s): N17.9 - Acute kidney failure, unspecified; N18.9 - Chronic kidney disease, unspecified Status: Acute (2) Normocytic anemia Code(s): D64.9 - Anemia, unspecified Status: Acute (3) Congestive heart failure Code(s): I50.9 - Heart failure, unspecified Status: Acute (4) Essential hypertension Code(s): I10 - Essential (primary) hypertension Status: Chronic (5) Diabetes type 2, controlled Code(s): E11.9 - Type 2 diabetes mellitus without complications Status: Acute (6) History of CVA (cerebrovascular accident) Code(s): Z86.73 - Personal history of transient ischemic attack (TIA), and cerebral infarction without residual deficits Status: Acute (7) Leukocytosis Code(s): D72.829 - Elevated white blood cell count, unspecified Status: Acute (8) Acute hypotension Code(s): I95.9 - Hypotension, unspecified Status: Acute (9) Acute hyperkalemia Code(s): E87.5 - Hyperkalemia Status: Acute (10) Diarrhea Code(s): R19.7 - Diarrhea, unspecified Status: Acute (11) Hypermagnesemia Code(s): E83.41 - Hypermagnesemia Status: Acute <Kye Joyner - 02/04/18 14:34> (1) Renal failure (ARF), acute on chronic Code(s): N17.9 - Acute kidney failure, unspecified; N18.9 - Chronic kidney disease, unspecified Status: Acute Plan: Renal function has improved Continue to avoid nephrotoxic agents Continue IV fluids @84 mls/hr Monitor kidney function daily (2) Normocytic anemia Code(s): D64.9 - Anemia, unspecified Status: Acute Plan: Likely due to chronic renal disease Monitor CBC daily and transfuse as needed (3) Congestive heart failure Code(s): I50.9 - Heart failure, unspecified Status: Acute Plan: On low running fluids at this time for NICOLASA Based on lung exam today, continuing duonebs and IS. Also nursing order to keep head of bed elevated Home meds held at this time, including Lasix. Will be resumed tomorrow after d/c 'ing fluids If signs of fluid overload or SOB, DC fluids and administer Lasix I/O's not approximate due to episodes of urinary incontinence On home meds amiodarone, Eliquis, and Tamsulosin (4) Essential hypertension Code(s): I10 - Essential (primary) hypertension Status: Chronic Plan: home BP meds held except for carvedilol 6.25 mg BID - adjusted to give carvedilol dose once daily. (5) Diabetes type 2, controlled Code(s): E11.9 - Type 2 diabetes mellitus without complications Status: Acute Plan: Levemir 7 units twice daily POC glucose checks with sliding scale insulin (6) History of CVA (cerebrovascular accident) Code(s): Z86.73 - Personal history of transient ischemic attack (TIA), and cerebral infarction without residual deficits Status: Acute Plan: Continue home Eliquis, carvedilol, (7) Leukocytosis Code(s): D72.829 - Elevated white blood cell count, unspecified Status: Acute Plan: Resolved, likely stress-induced (8) Acute hypotension Code(s): I95.9 - Hypotension, unspecified Status: Acute Plan: Resolved. (9) Acute hyperkalemia Code(s): E87.5 - Hyperkalemia Status: Acute Plan: Resolved. (10) Diarrhea Code(s): R19.7 - Diarrhea, unspecified Status: Acute Plan: Resolved. (11) Hypermagnesemia Code(s): E83.41 - Hypermagnesemia Status: Acute Plan: Improved. <Brandie Roberts - 02/04/18 10:50> - Assessment and Plan DISPO: PT recommends rehab at SNF. CM consulted to discuss d/c plan w/ caregiver. F: IVF E: PRN N: Diet diabetic/cardiac/renal PPX DVT - On Eliquis GI - none Code status: Patient has DNR order per caregiver. Son Nick (goes by J) is POA in event of incapacity - [phone] <Brandie Roberts - 02/04/18 11:12> - Attending Attestation Patient case discussed with resident physicians I have independently examined the patient I have read the above note and agree with the assessment and plan as discussed with me I was involved in all medical decision making for this patient Kye Joyner MD <Kye Joyner - 02/04/18 14:34> <Brandie Roberts N - Last Filed: 02/04/18 10:50> (1) Renal failure (ARF), acute on chronic Qualifiers: Acute renal failure type: unspecified Chronic kidney disease stage: stage 3 ( moderate) Qualified Code(s): N17.9 - Acute kidney failure, unspecified; N18.3 - Chronic kidney disease, stage 3 (moderate) (5) Diabetes type 2, controlled Qualifiers: Diabetes mellitus intermediate frame tender insulin use: with senior care use Diabetes mellitus complication status: without complication Qualified Code(s): E11.9 - Type 2 diabetes mellitus without complications; Z79.4 - oysterman (current) use of insulin (7) Leukocytosis Qualifiers: Leukocytosis type: unspecified Qualified Code(s): D72.829 - Elevated white blood cell count, unspecified <Kye Joyner - Last Filed: 02/04/18 14:34> (1) Renal failure (ARF), acute on chronic Qualifiers: Acute renal failure type: unspecified Chronic kidney disease stage: stage 3 ( moderate) Qualified Code(s): N17.9 - Acute kidney failure, unspecified; N18.3 - Chronic kidney disease, stage 3 (moderate) (5) Diabetes type 2, controlled Qualifiers: Diabetes mellitus senior care insulin use: with intermediate frame tender use Diabetes mellitus complication status: without complication Qualified Code(s): E11.9 - Type 2 diabetes mellitus without complications; Z79.4 - oysterman (current) use of insulin (7) Leukocytosis Qualifiers: Leukocytosis type: unspecified Qualified Code(s): D72.829 - Elevated white blood cell count, unspecified <Brandie Roberts - Last Filed: 02/04/18 10:50> (1) Renal failure (ARF), acute on chronic Qualifiers: Acute renal failure type: unspecified Chronic kidney disease stage: stage 3 ( moderate) Qualified Code(s): N17.9 - Acute kidney failure, unspecified; N18.3 - Chronic kidney disease, stage 3 (moderate) (5) Diabetes type 2, controlled Qualifiers: Diabetes mellitus senior care insulin use: with intermediate frame tender use Diabetes mellitus complication status: without complication Qualified Code(s): E11.9 - Type 2 diabetes mellitus without complications; Z79.4 - retirement (current) use of insulin (7) Leukocytosis Qualifiers: Leukocytosis type: unspecified Qualified Code(s): D72.829 - Elevated white blood cell count, unspecified <Kye Joyner - Last Filed: 02/04/18 14:34> (1) Renal failure (ARF), acute on chronic Qualifiers: Acute renal failure type: unspecified Chronic kidney disease stage: stage 3 ( moderate) Qualified Code(s): N17.9 - Acute kidney failure, unspecified; N18.3 - Chronic kidney disease, stage 3 (moderate) (5) Diabetes type 2, controlled Qualifiers: Diabetes mellitus senior care insulin use: with intermediate frame tender use Diabetes mellitus complication status: without complication Qualified Code(s): E11.9 - Type 2 diabetes mellitus without complications; Z79.4 - oysterman (current) use of insulin (7) Leukocytosis Qualifiers: Leukocytosis type: unspecified Qualified Code(s): D72.829 - Elevated white blood cell count, unspecified
[2018-02-04] MEDS: Carvedilol 6.25 MG Tablet PO SCH (11:15)
[2018-02-05] MEDS: Chlorhexidine Gluconate 2% 1 Pack (2 Cloths) TOPICAL SCH (03:03)
[2018-02-05 04:25] LABS: Calcium 8.1 mg/dL (8.5-10.1); Carbon Dioxide 21.4 meq/L (21.0-32.0); Magnesium 2.4 mg/dL (1.5-2.5); Potassium 4.6 meq/L (3.5-5.1)
[2018-02-05] MEDS: Insulin NovoLOG Aspart Correctional Sugar Inj SQ SCH ×2 (05:21→11:52)
[2018-02-05] MEDS: Carvedilol 6.25 MG Tablet PO SCH (08:32)
[2018-02-05] MEDS: Amiodarone 200 MG Tablet PO SCH (08:32)
[2018-02-05] MEDS: Insulin Detemir Inj 1,000 UNIT/10 ML Vial SQ SCH ×2 (08:33→21:07)
--- NOTE | 2018-02-05 10:31 | P.PNFP ---
Subjective Interval history: Patient seen and examined this morning. He is confused and does not understand why he is in the hospital. His remote memory is intact, however he has difficulty with short-term attention of information. He states that he is mild low back pain but otherwise has no complaints at this time. He states that he is hesitant to try and urinate on his own because he is afraid it is "going to hurt, after they had to straight catheter him. Denies fever, chills, nausea, vomiting, abdominal pain, chest pain, shortness of breath, and leg pain. During conversation, patient mentions that when he woke up this morning he thought that his care program resident was "draining him of his blood", and did not understand why she was doing that. No known psychiatric history, however, patient is mildly confused at baseline. Update 11:50am: Spoke to Naren, patient's caregiver, to update her on the patient's current status, and plan for rehab placement. She agrees with this plan and states that she would like to see him get stronger. She also states that at baseline, he is mildly confused, and has trouble with short-term memory retention. She states that yesterday he had returned to baseline. <Cecile Rausch - 02/05/18 11:57> Results - Labs Result diagrams: 02/03/18 05:00 02/05/18 03:41 <Kye Joyner - 02/05/18 13:15> Abnormal lab results 02/04/18 02/05/18 Range/Units 18:13 03:41 Chloride 113 H (98-107) meq/L BUN 39 H (7-18) mg/dL Creatinine 2.12 H (0.60-1.30) mg/dL Estimated GFR 30 L (>89) mL/min POC Glucose 132 H (68-110) mg/dl Calcium 8.1 L (8.5-10.1) mg/dL BMP 02/05/18 03:41 Sodium 144 Potassium 4.6 Chloride 113 H Carbon Dioxide 21.4 BUN 39 H Creatinine 2.12 H Calcium 8.1 L <Kye Joyner - 02/05/18 13:15> Abnormal lab results 02/04/18 02/04/18 02/05/18 Range/Units 12:29 18:13 03:41 Chloride 113 H (98-107) meq/L BUN 39 H (7-18) mg/dL Creatinine 2.12 H (0.60-1.30) mg/dL Estimated GFR 30 L (>89) mL/min POC Glucose 111 H 132 H (68-110) mg/dl Calcium 8.1 L (8.5-10.1) mg/dL BMP 02/05/18 03:41 Sodium 144 Potassium 4.6 Chloride 113 H Carbon Dioxide 21.4 BUN 39 H Creatinine 2.12 H Calcium 8.1 L <Cecile Rausch - 02/05/18 10:31> Physical Exam Vital signs: Vital Signs 02/04/18 14:00 02/04/18 16:00 02/04/18 16:39 Temperature 97.2 F L Pulse Rate 72 70 Respiratory Rate 18 Blood Pressure 100/56 L Pulse Oximetry 94 L 95 02/04/18 20:00 02/04/18 23:57 02/05/18 00:00 Temperature 97.4 F L 97.1 F L Pulse Rate 72 68 70 Respiratory Rate 16 16 Blood Pressure 111/63 110/64 Pulse Oximetry 93 L 96 02/05/18 03:57 02/05/18 04:00 02/05/18 08:00 Temperature 97.1 F L 98.0 F Pulse Rate 68 71 70 Respiratory Rate 16 19 Blood Pressure 125/64 135/62 Pulse Oximetry 97 95 02/05/18 09:54 02/05/18 12:00 02/05/18 13:03 Temperature 98.2 F Pulse Rate 69 82 Respiratory Rate 19 Blood Pressure 133/66 Pulse Oximetry 95 96 Intake & Output 02/04/18 02/05/18 02/05/18 18:59 06:59 18:59 Intake Total 0 / 0 1000 / 1000 1000 / 1000 Output Total 1000 / 1000 Balance -1000 / -1000 1000 / 1000 1000 / 1000 Weight 88.4 kg Intake: IV 1000 / 1000 1000 / 1000 NS Inj 1,000 ML @ 84 mls/hr IV. 1000 / 1000 1000 / 1000 CONT .[id number] [facility] Rx#:[id number] Oral 0 / 0 Output: Urine 100 / 100 Urine Amount (Catheter) 900 / 900 Straight 900 / 900 Other: Bladder Irrigation Fluid - Amount Instilled Straight 600 Date of Last Bowel Movement 02/04/18 <Kye Joyner - 02/05/18 13:15> Vital Signs 02/04/18 11:00 02/04/18 12:00 02/04/18 14:00 Temperature 97.9 F Pulse Rate 70 69 72 Respiratory Rate 21 18 Blood Pressure 152/70 H 156/72 H Pulse Oximetry 96 97 02/04/18 16:00 02/04/18 16:39 02/04/18 20:00 Temperature 97.2 F L 97.4 F L Pulse Rate 70 72 Respiratory Rate 18 16 Blood Pressure 100/56 L 111/63 Pulse Oximetry 94 L 95 93 L 02/04/18 23:57 02/05/18 00:00 02/05/18 03:57 Temperature 97.1 F L Pulse Rate 68 70 68 Respiratory Rate 16 Blood Pressure 110/64 Pulse Oximetry 96 02/05/18 04:00 02/05/18 08:00 02/05/18 09:54 Temperature 97.1 F L 98.0 F Pulse Rate 71 70 Respiratory Rate 16 19 Blood Pressure 125/64 135/62 Pulse Oximetry 97 95 95 Intake & Output 02/04/18 02/05/18 02/05/18 18:59 06:59 18:59 Intake Total 0 / 0 1000 / 1000 Output Total 1000 / 1000 Balance -1000 / -1000 1000 / 1000 Weight 88.4 kg Intake: IV 1000 / 1000 NS Inj 1,000 ML @ 84 mls/hr IV. 1000 / 1000 CONT .[id number] [facility] Rx#:[id number] Oral 0 / 0 Output: Urine 100 / 100 Urine Amount (Catheter) 900 / 900 Straight 900 / 900 Other: Bladder Irrigation Fluid - Amount Instilled Straight 600 Date of Last Bowel Movement 02/04/18 <Cecile Rausch - 02/05/18 10:31> Narrative: CONSTITUTIONAL/GEN: Obese male, sitting up in bed in no obvious distress.. EYES: conjunctiva normal, PERRLA, EOMI. ENT: Mouth and pharynx normal. LUNGS: coarse lung sounds bilaterally at the lower lung bases. CARDIOVASCULAR: RR without murmur or gallop. No significant edema. GI/ABD: soft without masses, without organomegaly. Nontender to palpation in all 4 quadrants. No rebound or guarding. Bowel sounds present throughout. : no CVA tenderness SKIN: color normal, no rashes noted. PSYCH/MENTAL STATUS: <Cecile Rausch 02/05/18 11:49> - Urinary Catheter Management Straight Cath placed during this visit: no <Kye Joyner 02/05/18 13:15> yes <Cecile Rausch 02/05/18 11:57> Reason for continuing: Not indwelling catheter <Cecile Rausch 02/05/18 10: 31> Insertion date: 02/04/18 <Cecile Rausch 02/05/18 10:31> Insertion time: 13:00 <Cecile Rausch 02/05/18 10:31> Assessment and Plan - Assessment (1) Renal failure (ARF), acute on chronic Code(s): N17.9 - Acute kidney failure, unspecified; N18.9 - Chronic kidney disease, unspecified Status: Acute (2) Normocytic anemia Code(s): D64.9 - Anemia, unspecified Status: Acute (3) Congestive heart failure Code(s): I50.9 - Heart failure, unspecified Status: Acute (4) Essential hypertension Code(s): I10 - Essential (primary) hypertension Status: Chronic (5) Diabetes type 2, controlled Code(s): E11.9 - Type 2 diabetes mellitus without complications Status: Acute (6) History of CVA (cerebrovascular accident) Code(s): Z86.73 - Personal history of transient ischemic attack (TIA), and cerebral infarction without residual deficits Status: Acute (7) Leukocytosis Code(s): D72.829 - Elevated white blood cell count, unspecified Status: Acute (8) Acute hypotension Code(s): I95.9 - Hypotension, unspecified Status: Acute (9) Acute hyperkalemia Code(s): E87.5 - Hyperkalemia Status: Acute (10) Diarrhea Code(s): R19.7 - Diarrhea, unspecified Status: Acute (11) Hypermagnesemia Code(s): E83.41 - Hypermagnesemia Status: Acute <Kye Joyner 02/05/18 13:15> (1) Renal failure (ARF), acute on chronic Code(s): N17.9 - Acute kidney failure, unspecified; N18.9 - Chronic kidney disease, unspecified Status: Acute Plan: Renal function has improved compared to admission. Continue to avoid nephrotoxic agents Continue gentle IV fluids @84 mls/hr, due to hx of CHF Monitor kidney function daily (2) Normocytic anemia Code(s): D64.9 - Anemia, unspecified Status: Acute Plan: Likely due to chronic renal disease Monitor CBC daily and transfuse as needed (3) Congestive heart failure Code(s): I50.9 - Heart failure, unspecified Status: Acute Plan: On low running fluids at this time for NICOLASA Based on lung exam today, continuing duonebs and IS. Also nursing order to keep head of bed elevated. Home meds held at this time, including Lasix at this time. If signs of fluid overload or SOB, DC fluids and administer Lasix I/O's not approximate due to episodes of urinary incontinence On home meds amiodarone, Eliquis, and Tamsulosin (4) Essential hypertension Code(s): I10 - Essential (primary) hypertension Status: Chronic Plan: home BP meds held except for carvedilol 6.25 mg BID - adjusted to give carvedilol dose once daily. (5) Diabetes type 2, controlled Code(s): E11.9 - Type 2 diabetes mellitus without complications Status: Acute Plan: Levemir 7 units twice daily POC glucose checks with sliding scale insulin (6) History of CVA (cerebrovascular accident) Code(s): Z86.73 - Personal history of transient ischemic attack (TIA), and cerebral infarction without residual deficits Status: Acute Plan: Continue home Eliquis, carvedilol, (7) Leukocytosis Code(s): D72.829 - Elevated white blood cell count, unspecified Status: Acute Plan: Resolved, likely stress-induced (8) Acute hypotension Code(s): I95.9 - Hypotension, unspecified Status: Acute Plan: Resolved. (9) Acute hyperkalemia Code(s): E87.5 - Hyperkalemia Status: Acute Plan: Resolved. (10) Diarrhea Code(s): R19.7 - Diarrhea, unspecified Status: Acute Plan: Resolved. (11) Hypermagnesemia Code(s): E83.41 - Hypermagnesemia Status: Acute Plan: Improved. <Cecile Rausch - 02/05/18 11:52> - Assessment and Plan DISPO: PT recommends rehab. Discussed case with CM who will contact [facility] for possible placement. F: IVF E: PRN N: Diet diabetic/cardiac/renal PPX DVT - On Eliquis GI - none Code status: Patient has DNR order per caregiver. Son Nick (goes by J) is POA in event of incapacity - [phone] <Cecile Rausch - 02/05/18 11:49> - Attending Attestation Pt. examined and case discussed with resident physicians. I have read the above note and agree with the assessment and plan as discussed with me. I was involved in all medical decision making for this patient. Kye Joyner MD <Kye Joyner - 02/05/18 13:15> <Cecile Rausch - Last Filed: 02/05/18 11:52> (1) Renal failure (ARF), acute on chronic Qualifiers: Acute renal failure type: unspecified Chronic kidney disease stage: stage 3 ( moderate) Qualified Code(s): N17.9 - Acute kidney failure, unspecified; N18.3 - Chronic kidney disease, stage 3 (moderate) (5) Diabetes type 2, controlled Qualifiers: Diabetes mellitus bottled beverage inspector insulin use: with bottled beverage inspector use Diabetes mellitus complication status: without complication Qualified Code(s): E11.9 - Type 2 diabetes mellitus without complications; Z79.4 - clinical veterinarian (current) use of insulin (7) Leukocytosis Qualifiers: Leukocytosis type: unspecified Qualified Code(s): D72.829 - Elevated white blood cell count, unspecified <Kye Joyner - Last Filed: 02/05/18 13:15> (1) Renal failure (ARF), acute on chronic Qualifiers: Acute renal failure type: unspecified Chronic kidney disease stage: stage 3 ( moderate) Qualified Code(s): N17.9 - Acute kidney failure, unspecified; N18.3 - Chronic kidney disease, stage 3 (moderate) (5) Diabetes type 2, controlled Qualifiers: Diabetes mellitus long-term insulin use: with bottled beverage inspector use Diabetes mellitus complication status: without complication Qualified Code(s): E11.9 - Type 2 diabetes mellitus without complications; Z79.4 - clinical veterinarian (current) use of insulin (7) Leukocytosis Qualifiers: Leukocytosis type: unspecified Qualified Code(s): D72.829 - Elevated white blood cell count, unspecified <Cecile Rausch - Last Filed: 02/05/18 11:52> (1) Renal failure (ARF), acute on chronic Qualifiers: Acute renal failure type: unspecified Chronic kidney disease stage: stage 3 ( moderate) Qualified Code(s): N17.9 - Acute kidney failure, unspecified; N18.3 - Chronic kidney disease, stage 3 (moderate) (5) Diabetes type 2, controlled Qualifiers: Diabetes mellitus long-term insulin use: with long-term use Diabetes mellitus complication status: without complication Qualified Code(s): E11.9 - Type 2 diabetes mellitus without complications; Z79.4 - custodial (current) use of insulin (7) Leukocytosis Qualifiers: Leukocytosis type: unspecified Qualified Code(s): D72.829 - Elevated white blood cell count, unspecified <Kye Joyner - Last Filed: 02/05/18 13:15> (1) Renal failure (ARF), acute on chronic Qualifiers: Acute renal failure type: unspecified Chronic kidney disease stage: stage 3 ( moderate) Qualified Code(s): N17.9 - Acute kidney failure, unspecified; N18.3 - Chronic kidney disease, stage 3 (moderate) (5) Diabetes type 2, controlled Qualifiers: Diabetes mellitus bottled beverage inspector insulin use: with bottled beverage inspector use Diabetes mellitus complication status: without complication Qualified Code(s): E11.9 - Type 2 diabetes mellitus without complications; Z79.4 - clinical veterinarian (current) use of insulin (7) Leukocytosis Qualifiers: Leukocytosis type: unspecified Qualified Code(s): D72.829 - Elevated white blood cell count, unspecified
[2018-02-05] MEDS: Sod Chloride 0.9% Inj 1,000 ML IV.CONT SCH (11:50)
[2018-02-06] MEDS: Insulin NovoLOG Aspart Correctional Sugar Inj SQ SCH ×5 (04:44→18:21)
[2018-02-06] MEDS: Sod Chloride 0.9% Inj 1,000 ML IV.CONT SCH (04:45)
[2018-02-06] MEDS: Chlorhexidine Gluconate 2% 1 Pack (2 Cloths) TOPICAL SCH (04:46)
[2018-02-06 07:00] LABS: Hematocrit 28.3 % (39.0-51.0); Hemoglobin 9.3 gm/dL (13.0-17.0); Mean Corpuscular Hemoglobin 29.8 pg (27.0-34.0); Mean Corpuscular Volume 90.4 fL (80.0-100.0); Mean Platelet Volume 8.4 fL (7.0-11.0); Platelet Count 277 th/mm3 (150-450); Red Blood Count 3.13 mil/mm3 (4.50-5.90); Red Cell Distribution Width 16.2 % (11.6-17.2); White Blood Count 7.2 th/mm3 (4.0-11.0)
[2018-02-06 07:28] LABS: Calcium 8.1 mg/dL (8.5-10.1); Carbon Dioxide 21.2 meq/L (21.0-32.0); Potassium 4.1 meq/L (3.5-5.1)
--- NOTE | 2018-02-06 09:39 | P.PNFP ---
Addendum entered and electronically signed by Brandie Roberts MD, R2 02/06/18 12 :23: Urinary retention: Possible hx, is on Tamsulosin. Difficult to obtain hx from patient. Associated w/ hematuria which is likely post-traumatic. Plan to keep blackburn in, D /C with leg bag. Have patient f/u with urology outpatient. Original Note: Subjective Interval history: No new problems to report. Blackburn placed yesterday, associated w/ hematuria. Bladder scan showed 390cc beforehand. Patient continues to drain bloody appearing urine, but per nursing, this is clearing up gradually. <Brandie Roberts - 02/06/18 12:23> Results - Labs Result diagrams: 02/07/18 02:57 02/07/18 02:57 <Tuan Nicolas - 02/07/18 13:29> Abnormal lab results 02/06/18 02/06/18 02/07/18 Range/Units 20:32 21:09 02:57 RBC 3.24 L (4.50-5.90) mil/mm3 Hgb 9.6 L (13.0-17.0) gm/dL Hct 29.6 L (39.0-51.0) % [place] % (Auto) 13.8 H (0.0-8.0) % [place] # (Auto) 1.0 H (0.0-0.9) th/mm3 Chloride (98-107) meq/L Creatinine (0.60-1.30) mg/dL Estimated GFR (>89) mL/min POC Glucose 65 L 120 H (68-110) mg/dl Calcium (8.5-10.1) mg/dL Total Protein (6.4-8.2) g/dL Albumin (3.4-5.0) g/dL 02/07/18 02/07/18 Range/Units 02:57 12:11 RBC (4.50-5.90) mil/mm3 Hgb (13.0-17.0) gm/dL Hct (39.0-51.0) % [place] % (Auto) (0.0-8.0) % [place] # (Auto) (0.0-0.9) th/mm3 Chloride 113 H (98-107) meq/L Creatinine 1.57 H (0.60-1.30) mg/dL Estimated GFR 42 L (>89) mL/min POC Glucose 138 H (68-110) mg/dl Calcium 7.9 L (8.5-10.1) mg/dL Total Protein 5.8 L D (6.4-8.2) g/dL Albumin 2.4 L (3.4-5.0) g/dL Short CBC 02/07/18 Range/Units 02:57 WBC 6.9 (4.0-11.0) th/mm3 Hgb 9.6 L (13.0-17.0) gm/dL Hct 29.6 L (39.0-51.0) % Plt Count 251 (150-450) th/mm3 BMP 02/07/18 02:57 Sodium 142 Potassium 4.6 Chloride 113 H Carbon Dioxide 21.6 BUN 18 Creatinine 1.57 H Calcium 7.9 L Liver Function 02/07/18 Range/Units 02:57 Total Bilirubin 0.2 (0.2-1.0) mg/dL AST 29 (15-37) U/L ALT 24 (12-78) U/L Alkaline Phosphatase 92 (45-117) U/L Albumin 2.4 L (3.4-5.0) g/dL <Tuan Nicolas - 02/07/18 13:29> Abnormal lab results 02/05/18 02/06/18 02/06/18 Range/Units 21:06 04:24 04:24 RBC 3.13 L (4.50-5.90) mil/mm3 Hgb 9.3 L (13.0-17.0) gm/dL Hct 28.3 L (39.0-51.0) % Chloride 114 H (98-107) meq/L BUN 27 H (7-18) mg/dL Creatinine 1.68 H (0.60-1.30) mg/dL Estimated GFR 39 L (>89) mL/min POC Glucose 205 H (68-110) mg/dl Random Glucose 123 H (74-106) mg/dL Calcium 8.1 L (8.5-10.1) mg/dL 02/06/18 02/06/18 Range/Units 04:49 07:24 RBC (4.50-5.90) mil/mm3 Hgb (13.0-17.0) gm/dL Hct (39.0-51.0) % Chloride (98-107) meq/L BUN (7-18) mg/dL Creatinine (0.60-1.30) mg/dL Estimated GFR (>89) mL/min POC Glucose 142 H 148 H (68-110) mg/dl Random Glucose (74-106) mg/dL Calcium (8.5-10.1) mg/dL Short CBC 02/06/18 Range/Units 04:24 WBC 7.2 (4.0-11.0) th/mm3 Hgb 9.3 L (13.0-17.0) gm/dL Hct 28.3 L (39.0-51.0) % Plt Count 277 (150-450) th/mm3 BMP 02/06/18 04:24 Sodium 143 Potassium 4.1 Chloride 114 H Carbon Dioxide 21.2 BUN 27 H Creatinine 1.68 H Calcium 8.1 L <AlejandraBrandie N - 02/06/18 09:38> Physical Exam Vital signs: Vital Signs 02/06/18 16:00 02/06/18 19:31 02/06/18 20:00 Temperature 98.2 F 98.1 F Pulse Rate 70 69 Respiratory Rate 18 18 Blood Pressure 148/70 H 120/59 L Pulse Oximetry 94 L 95 94 L 02/06/18 21:13 02/07/18 00:00 02/07/18 04:00 Temperature 97.9 F 98 F Pulse Rate 70 69 70 Respiratory Rate 18 18 18 Blood Pressure 101/52 L 136/63 Pulse Oximetry 93 L 93 L 02/07/18 08:00 02/07/18 12:00 Temperature 98.4 F 98.4 F Pulse Rate 71 69 Respiratory Rate 17 17 Blood Pressure 148/66 H 133/75 Pulse Oximetry 94 L 96 Intake & Output 02/06/18 02/07/18 02/07/18 18:59 06:59 18:59 Weight 88.4 kg Other: Date of Last Bowel Movement 02/06/18 <Tuan Nicolas - 02/07/18 13:29> Vital Signs 02/05/18 09:54 02/05/18 12:00 02/05/18 13:03 Temperature 98.2 F Pulse Rate 69 82 Respiratory Rate 19 Blood Pressure 133/66 Pulse Oximetry 95 96 02/05/18 16:00 10/27/18 16:51 02/05/18 17:00 Temperature 97.5 F L Pulse Rate 73 69 74 Respiratory Rate 18 18 Blood Pressure 132/69 Pulse Oximetry 96 02/05/18 20:00 02/05/18 21:41 02/06/18 00:00 Temperature 97.4 F L 97.3 F L Pulse Rate 72 70 72 Respiratory Rate 18 24 18 Blood Pressure 133/63 158/72 H Pulse Oximetry 96 93 L 96 02/06/18 03:12 02/06/18 04:00 02/06/18 08:00 Temperature 97.9 F 98.5 F Pulse Rate 70 70 70 Respiratory Rate 22 18 20 Blood Pressure 170/76 H 177/81 H Pulse Oximetry 92 L 94 L 02/06/18 09:00 02/06/18 09:04 Temperature Pulse Rate 68 Respiratory Rate 18 Blood Pressure Pulse Oximetry 95 Intake & Output 02/05/18 02/06/18 02/06/18 18:59 06:59 18:59 Intake Total 1000 / 1000 900 / 900 Balance 1000 / 1000 900 / 900 Intake: IV 1000 / 1000 900 / 900 NS Inj 1,000 ML @ 84 mls/hr IV. 1000 / 1000 900 / 900 CONT .[id number] [facility] Rx#:[id number] Other: Date of Last Bowel Movement 02/04/18 <Brandie Roberts - 02/06/18 09:38> Narrative: CONSTITUTIONAL/GEN: Obese male, sitting up in bed in no obvious distress.. EYES: conjunctiva normal, PERRLA, EOMI. ENT: Mouth and pharynx normal. LUNGS: coarse lung sounds bilaterally at the lower lung bases. CARDIOVASCULAR: RR without murmur or gallop. No significant edema. GI/ABD: soft without masses, without organomegaly. Nontender to palpation in all 4 quadrants. No rebound or guarding. Bowel sounds present throughout. : no CVA tenderness SKIN: color normal, no rashes noted. PSYCH/MENTAL STATUS: <Brandie Roberts - 02/06/18 12:23> - Urinary Catheter Management Straight Cath placed during this visit: no <Tuan Nicolas - 02/07/18 13:29> yes <Brandie Roberts - 02/06/18 12:23> Reason for continuing: Acute urinary retention <Brandie Roberts N - 02/06/18 09:38 > Insertion date: 02/05/18 <Brandie Roberts N - 02/06/18 09:38> Insertion time: 16:30 <Brandie Roberts N - 02/06/18 09:38> Assessment and Plan - Assessment (1) Renal failure (ARF), acute on chronic Code(s): N17.9 - Acute kidney failure, unspecified; N18.9 - Chronic kidney disease, unspecified Status: Acute Plan: Renal function has improved compared to admission. Continue to avoid nephrotoxic agents DC fluids Monitor kidney function daily (2) Normocytic anemia Code(s): D64.9 - Anemia, unspecified Status: Acute Plan: Likely due to chronic renal disease Monitor CBC daily and transfuse as needed (3) Congestive heart failure Code(s): I50.9 - Heart failure, unspecified Status: Acute Plan: Continuing duonebs and IS. Also nursing order to keep head of bed elevated. Home meds held at this time, including Lasix at this time, due to improving NICOLASA. May resume when resolved or on DC If signs of fluid overload or SOB, DC fluids and administer Lasix I/O's not approximate due to episodes of urinary incontinence On home meds amiodarone, Eliquis, and Tamsulosin (4) Essential hypertension Code(s): I10 - Essential (primary) hypertension Status: Chronic Plan: home BP meds held except for carvedilol 6.25 mg BID (5) Diabetes type 2, controlled Code(s): E11.9 - Type 2 diabetes mellitus without complications Status: Acute Plan: Levemir 7 units twice daily POC glucose checks with sliding scale insulin (6) History of CVA (cerebrovascular accident) Code(s): Z86.73 - Personal history of transient ischemic attack (TIA), and cerebral infarction without residual deficits Status: Acute Plan: Continue home Eliquis, carvedilol, (7) Nutrition, metabolism, and development symptoms Code(s): R63.8 - Other symptoms and signs concerning food and fluid intake Status: Acute Plan: Nutrition: Renal and cardiac diet Electrolytes: None Fluids: None (8) DVT prophylaxis Status: Acute Plan: DVT prophy: on eliquis GI: none Dispo: Ok for D/C to SNF today. Accepted by [facility] but awaiting insurance auth <AlejandraDanielBrandie N - 02/06/18 12:02> - Assessment and Plan DISPO: PT recommends rehab. Discussed case with CM who will contact [facility] for possible placement. F: IVF E: PRN N: Diet diabetic/cardiac/renal PPX DVT - On Eliquis GI - none Code status: Patient has DNR order per caregiver. Son Nick (goes by J) is POA in event of incapacity - [phone] <AlejandraBrandie N - 02/06/18 09:38> - Attending Attestation See the residents documentation for details. I saw and evaluated the patient regarding the cabrera portions of this evaluation and agree with the residents findings and plans as written. Parts of this note were created using [employer] voice recognition software program. While efforts were made to correct any mistakes made by this software, some mistakes, errors, and omissions may remain in the final note that were not caught when the note was originally created. Plan of care was discussed and agreed upon with the patient as specifically documented in the above note. An opportunity to ask questions with explanation was provided. Patient voiced understanding on all information reviewed and discussed. <Tuan Nicolas - 02/07/18 13:29> <Brandie Roberts N - Last Filed: 02/06/18 12:02> (1) Renal failure (ARF), acute on chronic Qualifiers: Acute renal failure type: unspecified Chronic kidney disease stage: stage 3 ( moderate) Qualified Code(s): N17.9 - Acute kidney failure, unspecified; N18.3 - Chronic kidney disease, stage 3 (moderate) (5) Diabetes type 2, controlled Qualifiers: Diabetes mellitus senior living insulin use: with senior living use Diabetes mellitus complication status: without complication Qualified Code(s): E11.9 - Type 2 diabetes mellitus without complications; Z79.4 - investigator utility bill complaints (current) use of insulin <Brandie Roberts - Last Filed: 02/06/18 12:02> (1) Renal failure (ARF), acute on chronic Qualifiers: Acute renal failure type: unspecified Chronic kidney disease stage: stage 3 ( moderate) Qualified Code(s): N17.9 - Acute kidney failure, unspecified; N18.3 - Chronic kidney disease, stage 3 (moderate) (5) Diabetes type 2, controlled Qualifiers: Diabetes mellitus senior living insulin use: with information systems director use Diabetes mellitus complication status: without complication Qualified Code(s): E11.9 - Type 2 diabetes mellitus without complications; Z79.4 - investigator utility bill complaints (current) use of insulin
[2018-02-06] MEDS: Amiodarone 200 MG Tablet PO SCH (09:54)
[2018-02-06] MEDS: Insulin Detemir Inj 1,000 UNIT/10 ML Vial SQ SCH ×2 (09:55→20:37)
--- NOTE | 2018-02-06 16:28 | P.CONURO ---
History of Present Illness Service: Consult date: 02/06/18 Requesting Physician: Cecile Rausch Reason for Consult: Urinary retention and hematuria Primary Care Provider: Norman Penn MD, R3 Chief Complaint: Generalized weakness History of Present Illness: 87-year-old gentleman with multiple medical problems who was admitted for generalized malaise and shortness of breath. During the course of his present hospitalization the patient was having some problems with voiding and a Izquierdo catheter was placed. Soon after the Izquierdo was placed some hematuria was noted with subsequently resolved. At the time of consultation the patient was resting comfortably and not in any acute distress. He was a very poor historian and I was unable to determine if he is has been having problems urinating prior to his present hospitalization. Review of Systems unobtainable due to mental status PMFSH - History History Provided By: Family Member - Medical History Medical History: Medical History (Last Reviewed 02/04/18 @ 15:02 by Jag Mejia) CHF (congestive heart failure) Chronic kidney disease, stage III (moderate) Diabetes Essential hypertension History of atrial fibrillation History of pacemaker Hyperlipidemia Pacemaker Stroke - Surgical History Surgical History: Surgical History (Last Reviewed 02/04/18 @ 15:02 by Jag Mejia) History of bilateral knee replacement - Family History Family History: Family History (Last Updated 02/02/18 @ 22:24 by Norman Penn MD, R3) Brother Prostate cancer Mother Essential hypertension Father Essential hypertension - Tobacco History Second Hand Smoke Exposure: No Tobacco Use In Past 30 Days: No Smoking Status: Former smoker (quit 50 years ago) - Alcohol History How Often Do You Have a Drink Containing Alcohol: Never - Substance Use History Substance History: No History of Abuse - Travel History Recent Travel in the [facility] Within the Last 8 Weeks: No Recent Travel Out of the Country Within the Last 8 Weeks: No - Immunization History Tetanus Immunization: Unsure Medications and Allergies Active Medications: Active Medications Acetaminophen (Tylenol) 650 mg PO Q6H PRN PRN Reason: FEVER Hydrocodone Bitart/Acetaminophen ([place] 5/325) 1 tab PO Q6H PRN PRN Reason: PAIN SCALE 1 TO 5 Al Hydroxide/Mg Hydroxide (Milk Of Magnesia Liq) 30 ml PO Q12H PRN PRN Reason: Mild Constipation Albuterol (Albuterol Neb (Prn)) 2.5 mg NEB Q2HR NEB PRN PRN Reason: SHORTNESS OF BREATH/WHEEZING Amiodarone HCl (Cordarone) 200 mg PO DAILY [facility] Last Admin: 02/06/18 09:54 Dose: 200 mg Apixaban (Eliquis) 2.5 mg PO BID [facility] Last Admin: 02/06/18 09:54 Dose: 2.5 mg Bisacodyl (Dulcolax Supp) 10 mg RECTAL DAILY PRN PRN Reason: SEVERE CONSITIPATION Carvedilol (Coreg) 6.25 mg PO BID [facility] Chlorhexidine Gluconate (Chlorhexidine 2% Cloth) 3 pack TOPICAL DAILY@0400 PRN PRN Reason: Extra cloth needed Stop: 02/08/18 03:59 Chlorhexidine Gluconate (Chlorhexidine 2% Cloth) 3 pack TOPICAL DAILY@0400 [facility] Stop: 02/08/18 03:59 Last Admin: 02/06/18 04:46 Dose: Not Given Dextrose (D50w Vial) 50 ml IV.PUSH UNSCH PRN PRN Reason: PER HYPOGLYCEMIA PROTOCOL Glucagon (Glucagon Inj) 1 mg OTHER UNSCH PRN PRN Reason: for Hypoglycemia Protocol Sodium Chloride (Ns Inj) 1,000 mls @ 0 mls/hr IV.SIG BOLUS [facility] Last Admin: 02/05/18 21:03 Dose: 84 mls/hr Sodium Chloride (Ns Inj) 1,000 mls @ 84 mls/hr IV.CONT .[id number] [facility] Last Infusion: 02/06/18 06:46 Dose: 84 mls/hr Insulin Aspart (Novolog Insulin Correctional Sugar Inj) 0 unit SQ Q6HR [facility]; Protocol Last Admin: 02/06/18 06:52 Dose: Not Given Insulin Detemir (Levemir Inj) 7 unit SQ BID [facility] Last Admin: 02/06/18 09:55 Dose: 7 unit Lactulose (Lactulose Liq) 30 ml PO DAILY PRN PRN Reason: SEVERE CONSITIPATION Levothyroxine Sodium (Synthroid) 25 mcg PO DAILY@0600 [facility] Last Admin: 02/06/18 06:47 Dose: 25 mcg Morphine Sulfate (Morphine Inj) 2 mg IV.PUSH Q2H PRN PRN Reason: PAIN SCALE 6 TO 10 Ondansetron HCl (Zofran Inj) 4 mg IV.PUSH Q6H PRN PRN Reason: NAUSEA OR VOMITING Sennosides (Senokot) 17.2 mg PO Q12H PRN PRN Reason: Moderate Constipation Last Admin: 02/06/18 06:50 Dose: 17.2 mg Sodium Chloride (Ns Flush) 2 ml IV.FLUSH BID [facility] Last Admin: 02/06/18 09:54 Dose: 2 ml Sodium Chloride (Ns Flush) 2 ml IV.FLUSH UNSCH PRN PRN Reason: FLUSH AFTER USING IV ACCESS Tamsulosin HCl (Flomax) 0.4 mg PO DAILY [facility] Last Admin: 02/06/18 09:54 Dose: 0.4 mg Allergies Allergy/AdvReac Type Severity Reaction Status Date / Time tramadol Allergy Intermediate confusion Unverified 11/24/16 12:39 MRI PRECAUTION Allergy Severe Uncoded 03/21/15 06:31 Home Medications Medication Instructions Recorded Confirmed Type amiodarone 200 mg PO DAILY 02/02/18 02/02/18 History apixaban [Eliquis] 5 mg PO BID 02/02/18 02/02/18 History carvedilol 6.25 mg PO BID 02/02/18 02/02/18 History furosemide 20 mg PO DAILY 02/02/18 02/02/18 History insulin glargine [Lantus Solostar 15 unit SUBCUT DAILY 02/02/18 02/02/18 History U-100 Insulin] levothyroxine 25 mcg PO DAILY 02/02/18 02/02/18 History lisinopril 10 mg PO DAILY 02/02/18 02/02/18 History meloxicam 7.5 mg PO DAILY 02/02/18 02/02/18 History spironolactone 25 mg PO DAILY PRN 02/02/18 02/02/18 History tamsulosin 0.4 mg PO DAILY 02/02/18 02/02/18 History Physical Exam Vital Signs - 24 hr 02/05/18 16:51 02/05/18 17:00 02/05/18 20:00 Temperature 97.4 F L Pulse Rate 69 74 72 Respiratory Rate 18 18 Blood Pressure 133/63 Pulse Oximetry 96 02/05/18 21:41 02/06/18 00:00 02/06/18 03:12 Temperature 97.3 F L Pulse Rate 70 72 70 Respiratory Rate 24 18 22 Blood Pressure 158/72 H Pulse Oximetry 93 L 96 02/06/18 04:00 02/06/18 08:00 02/06/18 09:00 Temperature 97.9 F 98.5 F Pulse Rate 70 70 68 Respiratory Rate 18 20 18 Blood Pressure 170/76 H 177/81 H Pulse Oximetry 92 L 94 L 02/06/18 09:04 02/06/18 12:00 Temperature 97.5 F L Pulse Rate 69 Respiratory Rate 18 Blood Pressure 159/70 H Pulse Oximetry 95 95 Physical Exam: GENERAL: This is a well-nourished, well-developed patient, in no apparent distress. SKIN: No rashes, ecchymoses or lesions. Cool and dry. HEAD: Atraumatic. Normocephalic. No temporal or scalp tenderness. EYES: Pupils equal round and reactive. Extraocular motions intact. No scleral icterus. No injection or drainage. ENT: Nose without bleeding, purulent drainage or septal hematoma. Throat without erythema, tonsillar hypertrophy or exudate. Uvula midline. Airway patent. NECK: Trachea midline. No JVD or lymphadenopathy. Supple, nontender, no meningeal signs. CARDIOVASCULAR: Regular rate and rhythm without murmurs, gallops, or rubs. RESPIRATORY: Clear to auscultation. Breath sounds equal bilaterally. No wheezes , rales, or rhonchi. GASTROINTESTINAL: Abdomen soft, non-tender, nondistended. No hepato-splenomegaly , or palpable masses. No guarding. GENITOURINARY: Izquierdo catheter in place draining clear yellow urine, bladder not distended MUSCULOSKELETAL: Extremities without clubbing, cyanosis, or edema. No joint tenderness, effusion, or edema noted. No calf tenderness. Negative Homans sign bilaterally. NEUROLOGICAL: Awake and alert. Cranial nerves II through XII intact. Motor and sensory grossly within normal limits. Five out of 5 muscle strength in all muscle groups. Normal speech. Laboratory Results - last 24 hr 02/05/18 02/06/18 02/06/18 21:06 04:24 04:24 WBC 7.2 RBC 3.13 L Hgb 9.3 L Hct 28.3 L MCV 90.4 MCH 29.8 MCHC 33.0 RDW 16.2 Plt Count 277 MPV 8.4 Sodium 143 Potassium 4.1 Chloride 114 H Carbon Dioxide 21.2 Anion Gap 8 BUN 27 H Creatinine 1.68 H Estimated GFR 39 L POC Glucose 205 H Random Glucose 123 H Calcium 8.1 L 02/06/18 02/06/18 04:49 07:24 WBC RBC Hgb Hct MCV MCH MCHC RDW Plt Count MPV Sodium Potassium Chloride Carbon Dioxide Anion Gap BUN Creatinine Estimated GFR POC Glucose 142 H 148 H Random Glucose Calcium Microbiology 02/02/18 15:33 Aerobic Blood Culture - Preliminary Blood - Peripheral No growth in 4 days Anaerobic Blood Culture - Preliminary No growth in 4 days 02/02/18 15:38 Aerobic Blood Culture - Preliminary Blood - Peripheral No growth in 4 days Anaerobic Blood Culture - Preliminary No growth in 4 days Result Diagrams: 02/06/18 04:24 02/06/18 04:24 Imaging: ITS Impressions Abdomen/Bladder Ultrasound 02/02/18 00:00 CONCLUSION: 1. Kidneys are echogenic consistent with medical renal disease. 2. Bilateral renal cysts. 3. Mild distention of the urinary bladder. Chest X-Ray 02/02/18 12:23 CONCLUSION: 1. No acute abnormality or significant interval change. Assessment and Plan - Assessment (1) Retention of urine Code(s): R33.9 - Retention of urine, unspecified Status: Acute - Plan Urologic impression: 1. Urinary retention of indeterminate etiology 2. Hematuria related to traumatic Izquierdo placement now resolved Recommendations: 1. Maintain Izquierdo catheter to gravity drainage 2. Patient to follow-up at my office for further urologic workup to include cystoscopy and possibly urodynamics [phone].
[2018-02-06] MEDS: Carvedilol 6.25 MG Tablet PO SCH ×2 (18:13→20:24)
[2018-02-07] MEDS: Insulin NovoLOG Aspart Correctional Sugar Inj SQ SCH ×5 (00:57→23:36)
[2018-02-07] MEDS: Chlorhexidine Gluconate 2% 1 Pack (2 Cloths) TOPICAL SCH (02:59)
[2018-02-07 03:15] LABS: Baso # (Auto) 0.1 th/mm3 (0.0-0.2); Eos # (Auto) 0.3 th/mm3 (0.0-0.4); Hematocrit 29.6 % (39.0-51.0); Hemoglobin 9.6 gm/dL (13.0-17.0); Lymph # (Auto) 1.5 th/mm3 (1.0-4.8); Mean Corpuscular HGB Conc 32.5 % (32.0-36.0); Mean Corpuscular Hemoglobin 29.6 pg (27.0-34.0); Mean Corpuscular Volume 91.1 fL (80.0-100.0); Mean Platelet Volume 8.3 fL (7.0-11.0); Mono % (Auto) 13.8 % (0.0-8.0); Neut # (Auto) 4.1 th/mm3 (1.8-7.7); Neut % (Auto) 59.2 % (16.0-70.0); Platelet Count 251 th/mm3 (150-450); Red Blood Count 3.24 mil/mm3 (4.50-5.90); Red Cell Distribution Width 16.1 % (11.6-17.2); White Blood Count 6.9 th/mm3 (4.0-11.0)
[2018-02-07 03:44] LABS: Alkaline Phosphatase 92 U/L (45-117); Total Protein 5.8 g/dL (6.4-8.2)
[2018-02-07 03:58] LABS: Alanine Aminotransferase 24 U/L (12-78); Albumin 2.4 g/dL (3.4-5.0); Anion Gap 7 meq/L (5-15); Aspartate Aminotransferase 29 U/L (15-37); Blood Urea Nitrogen 18 mg/dL (7-18); Calcium 7.9 mg/dL (8.5-10.1); Carbon Dioxide 21.6 meq/L (21.0-32.0); Chloride 113 meq/L (98-107); Glomerular Filtration Rate 42 mL/min (>89); Glucose,Random 98 mg/dL (74-106); Potassium 4.6 meq/L (3.5-5.1); Sodium 142 meq/L (136-145)
[2018-02-07] MEDS: Amiodarone 200 MG Tablet PO SCH (10:08)
[2018-02-07] MEDS: Carvedilol 6.25 MG Tablet PO SCH ×2 (10:08→21:29)
[2018-02-07] MEDS: Insulin Detemir Inj 1,000 UNIT/10 ML Vial SQ SCH ×2 (10:08→21:29)
--- NOTE | 2018-02-07 11:07 | P.PNFP ---
Subjective Interval history: 87 yo male with multiple medical problems including DM and CHF admitted for acute on chronic renal failure, now being seen for f/u. Today he feels well and back to normal. No fatigue, SOB, chest pain. Izquierdo in place without discomfort. Mild right sided muscular pain LLE especially at hip/buttock. <Norman Penn - 02/07/18 11:07> Results - Labs Result diagrams: 02/07/18 02:57 02/07/18 02:57 <Tuan Nicolas - 02/07/18 14:24> Abnormal lab results 02/06/18 02/06/18 02/07/18 Range/Units 20:32 21:09 02:57 RBC 3.24 L (4.50-5.90) mil/mm3 Hgb 9.6 L (13.0-17.0) gm/dL Hct 29.6 L (39.0-51.0) % [place] % (Auto) 13.8 H (0.0-8.0) % [place] # (Auto) 1.0 H (0.0-0.9) th/mm3 Chloride (98-107) meq/L Creatinine (0.60-1.30) mg/dL Estimated GFR (>89) mL/min POC Glucose 65 L 120 H (68-110) mg/dl Calcium (8.5-10.1) mg/dL Total Protein (6.4-8.2) g/dL Albumin (3.4-5.0) g/dL 02/07/18 02/07/18 Range/Units 02:57 12:11 RBC (4.50-5.90) mil/mm3 Hgb (13.0-17.0) gm/dL Hct (39.0-51.0) % [place] % (Auto) (0.0-8.0) % [place] # (Auto) (0.0-0.9) th/mm3 Chloride 113 H (98-107) meq/L Creatinine 1.57 H (0.60-1.30) mg/dL Estimated GFR 42 L (>89) mL/min POC Glucose 138 H (68-110) mg/dl Calcium 7.9 L (8.5-10.1) mg/dL Total Protein 5.8 L D (6.4-8.2) g/dL Albumin 2.4 L (3.4-5.0) g/dL Short CBC 02/07/18 Range/Units 02:57 WBC 6.9 (4.0-11.0) th/mm3 Hgb 9.6 L (13.0-17.0) gm/dL Hct 29.6 L (39.0-51.0) % Plt Count 251 (150-450) th/mm3 BMP 02/07/18 02:57 Sodium 142 Potassium 4.6 Chloride 113 H Carbon Dioxide 21.6 BUN 18 Creatinine 1.57 H Calcium 7.9 L Liver Function 02/07/18 Range/Units 02:57 Total Bilirubin 0.2 (0.2-1.0) mg/dL AST 29 (15-37) U/L ALT 24 (12-78) U/L Alkaline Phosphatase 92 (45-117) U/L Albumin 2.4 L (3.4-5.0) g/dL <Tuan Nicolas - 02/07/18 14:24> Abnormal lab results 02/06/18 02/06/18 02/07/18 Range/Units 20:32 21:09 02:57 RBC 3.24 L (4.50-5.90) mil/mm3 Hgb 9.6 L (13.0-17.0) gm/dL Hct 29.6 L (39.0-51.0) % [place] % (Auto) 13.8 H (0.0-8.0) % [place] # (Auto) 1.0 H (0.0-0.9) th/mm3 Chloride (98-107) meq/L Creatinine (0.60-1.30) mg/dL Estimated GFR (>89) mL/min POC Glucose 65 L 120 H (68-110) mg/dl Calcium (8.5-10.1) mg/dL Total Protein (6.4-8.2) g/dL Albumin (3.4-5.0) g/dL 02/07/18 Range/Units 02:57 RBC (4.50-5.90) mil/mm3 Hgb (13.0-17.0) gm/dL Hct (39.0-51.0) % [place] % (Auto) (0.0-8.0) % [place] # (Auto) (0.0-0.9) th/mm3 Chloride 113 H (98-107) meq/L Creatinine 1.57 H (0.60-1.30) mg/dL Estimated GFR 42 L (>89) mL/min POC Glucose (68-110) mg/dl Calcium 7.9 L (8.5-10.1) mg/dL Total Protein 5.8 L D (6.4-8.2) g/dL Albumin 2.4 L (3.4-5.0) g/dL Short CBC 02/07/18 Range/Units 02:57 WBC 6.9 (4.0-11.0) th/mm3 Hgb 9.6 L (13.0-17.0) gm/dL Hct 29.6 L (39.0-51.0) % Plt Count 251 (150-450) th/mm3 BMP 02/07/18 02:57 Sodium 142 Potassium 4.6 Chloride 113 H Carbon Dioxide 21.6 BUN 18 Creatinine 1.57 H Calcium 7.9 L Liver Function 02/07/18 Range/Units 02:57 Total Bilirubin 0.2 (0.2-1.0) mg/dL AST 29 (15-37) U/L ALT 24 (12-78) U/L Alkaline Phosphatase 92 (45-117) U/L Albumin 2.4 L (3.4-5.0) g/dL <Norman Penn S - 02/07/18 11:07> Physical Exam Vital signs: Vital Signs 02/06/18 16:00 02/06/18 19:31 02/06/18 20:00 Temperature 98.2 F 98.1 F Pulse Rate 70 69 Respiratory Rate 18 18 Blood Pressure 148/70 H 120/59 L Pulse Oximetry 94 L 95 94 L 02/06/18 21:13 02/07/18 00:00 02/07/18 04:00 Temperature 97.9 F 98 F Pulse Rate 70 69 70 Respiratory Rate 18 18 18 Blood Pressure 101/52 L 136/63 Pulse Oximetry 93 L 93 L 02/07/18 08:00 02/07/18 12:00 Temperature 98.4 F 98.4 F Pulse Rate 71 69 Respiratory Rate 17 17 Blood Pressure 148/66 H 133/75 Pulse Oximetry 94 L 96 Intake & Output 02/06/18 02/07/18 02/07/18 18:59 06:59 18:59 Weight 88.4 kg Other: Date of Last Bowel Movement 02/06/18 <NicolasTuan hutchinson - 02/07/18 14:24> Vital Signs 02/06/18 12:00 02/06/18 16:00 02/06/18 19:31 Temperature 97.5 F L 98.2 F Pulse Rate 69 70 Respiratory Rate 18 18 Blood Pressure 159/70 H 148/70 H Pulse Oximetry 95 94 L 95 02/06/18 20:00 02/06/18 21:13 02/07/18 00:00 Temperature 98.1 F 97.9 F Pulse Rate 69 70 69 Respiratory Rate 18 18 18 Blood Pressure 120/59 L 101/52 L Pulse Oximetry 94 L 93 L 02/07/18 04:00 02/07/18 08:00 Temperature 98 F 98.4 F Pulse Rate 70 71 Respiratory Rate 18 17 Blood Pressure 136/63 148/66 H Pulse Oximetry 93 L 94 L Intake & Output 02/06/18 02/07/18 02/07/18 18:59 06:59 18:59 Weight 88.4 kg Other: Date of Last Bowel Movement 02/06/18 <Norman Penn S - 02/07/18 11:07> - Constitutional no acute distress, average body habitus, cooperative <Norman Penn S - 11:07> - Routine HEENT Exam Head: Present: normocephalic, atraumatic <Norman Penn S - 02/07/18 11:07> - Routine Respiratory Exam Present: CTA bilaterally. Absent: accessory muscle use, wheezes, crackles < Norman Penn S - 02/07/18 11:07> - Routine Cardiovascular Exam Present: RRR, S1, S2. Absent: murmur <Norman Penn S - 02/07/18 11:07> - Routine Abdominal Exam Present: soft. Absent: tenderness, distended <Norman Penn S - 02/07/18 11:07 > - Routine Extremities Exam Absent: cyanosis, edema <Norman Penn S - 02/07/18 11:07> - Routine Neurological Exam Present: alert, oriented X3, moving all extremities (slightly less able to move RLE due to MSK pain) <Norman Penn S - 02/07/18 11:07> - Urinary Catheter Management Straight Cath placed during this visit: no <Tuan Nicolas - 02/07/18 14:24> yes <Norman Penn - 02/07/18 11:07> Reason for continuing: Acute urinary retention <Norman Penn S - 02/07/18 11: 07> Insertion date: 02/05/18 <Norman Penn - 02/07/18 11:07> Insertion time: 16:30 <Norman Penn S - 02/07/18 11:07> Assessment and Plan - Assessment (1) Renal failure (ARF), acute on chronic Code(s): N17.9 - Acute kidney failure, unspecified; N18.9 - Chronic kidney disease, unspecified Status: Acute Plan: Due to acute dehydration which has now resolved Cr now back to baseline 1.5-1.6 Continue to avoid nephrotoxic agents Monitor kidney function daily while remaining in hospital (2) Normocytic anemia Code(s): D64.9 - Anemia, unspecified Status: Acute Plan: Likely due to chronic renal disease Monitor CBC daily and transfuse as needed (3) Congestive heart failure Code(s): I50.9 - Heart failure, unspecified Status: Acute Plan: Stable symptoms, not in exacerbation Home meds resumed except Lasix If signs of fluid overload or SOB, resume Lasix (4) Essential hypertension Code(s): I10 - Essential (primary) hypertension Status: Chronic Plan: continue home medications except Lasix (5) Diabetes type 2, controlled Code(s): E11.9 - Type 2 diabetes mellitus without complications Status: Acute Plan: Levemir 7 units twice daily POC glucose checks with sliding scale insulin (6) History of CVA (cerebrovascular accident) Code(s): Z86.73 - Personal history of transient ischemic attack (TIA), and cerebral infarction without residual deficits Status: Acute Plan: Continue home Eliquis, carvedilol (7) Nutrition, metabolism, and development symptoms Code(s): R63.8 - Other symptoms and signs concerning food and fluid intake Status: Acute Plan: Nutrition: Renal and cardiac diet Electrolytes: None Fluids: None (8) DVT prophylaxis Status: Acute Plan: DVT prophy: on eliquis GI: none <Norman Penn - 02/07/18 11:01> - Assessment and Plan See the residents documentation for details. I saw and evaluated the patient regarding the cabrera portions of this evaluation and agree with the residents findings and plans as written. Parts of this note were created using [employer] voice recognition software program. While efforts were made to correct any mistakes made by this software, some mistakes, errors, and omissions may remain in the final note that were not caught when the note was originally created. Plan of care was discussed and agreed upon with the patient as specifically documented in the above note. An opportunity to ask questions with explanation was provided. Patient voiced understanding on all information reviewed and discussed. <Tuan Nicolas - 02/07/18 14:24> Code status: Patient has DNR order per caregiver. Son Nick (goes by J) is POA in event of incapacity - [phone] <Norman Penn - 02/07/18 11:07> Discharge Planning: Medically cleared for D/C; PT recommending rehab due to deconditioning, CM consulted, appreciate assistance with placement <Norman Penn S - 02/07/18 11:07> <Norman Penn S - Last Filed: 02/07/18 11:01> (1) Renal failure (ARF), acute on chronic Qualifiers: Acute renal failure type: unspecified Chronic kidney disease stage: stage 3 ( moderate) Qualified Code(s): N17.9 - Acute kidney failure, unspecified; N18.3 - Chronic kidney disease, stage 3 (moderate) (5) Diabetes type 2, controlled Qualifiers: Diabetes mellitus prison insulin use: with prison use Diabetes mellitus complication status: without complication Qualified Code(s): E11.9 - Type 2 diabetes mellitus without complications; Z79.4 - terminal gauger (current) use of insulin <Norman Penn S - Last Filed: 02/07/18 11:01> (1) Renal failure (ARF), acute on chronic Qualifiers: Acute renal failure type: unspecified Chronic kidney disease stage: stage 3 ( moderate) Qualified Code(s): N17.9 - Acute kidney failure, unspecified; N18.3 - Chronic kidney disease, stage 3 (moderate) (5) Diabetes type 2, controlled Qualifiers: Diabetes mellitus prison insulin use: with keno terminal operator use Diabetes mellitus complication status: without complication Qualified Code(s): E11.9 - Type 2 diabetes mellitus without complications; Z79.4 - group home (current) use of insulin
[2018-02-08] MEDS: Insulin NovoLOG Aspart Correctional Sugar Inj SQ SCH ×4 (06:51→23:18)
[2018-02-08] MEDS: Insulin Detemir Inj 1,000 UNIT/10 ML Vial SQ SCH ×2 (09:35→21:34)
[2018-02-08] MEDS: Carvedilol 6.25 MG Tablet PO SCH ×2 (09:36→21:34)
[2018-02-08] MEDS: Lisinopril 10 MG Tablet PO SCH (09:36)
[2018-02-08] MEDS: Amiodarone 200 MG Tablet PO SCH (09:36)
[2018-02-08 10:38] LABS: Hemoglobin 10.4 gm/dL (13.0-17.0)
[2018-02-08 10:58] LABS: Albumin 2.5 g/dL (3.4-5.0); Calcium 8.2 mg/dL (8.5-10.1); Carbon Dioxide 23.4 meq/L (21.0-32.0); Phosphorus 3.3 mg/dL (2.5-4.9); Potassium 4.4 meq/L (3.5-5.1)
--- NOTE | 2018-02-08 11:18 | P.PNFP ---
Subjective Interval history: Patient seen and examined. He has no complaints at this time. Denies chest pain , shortness of breath, nausea, vomiting, abdominal pain or leg pain. CM is working with patient for placement at inpatient rehab at [facility]. Currently awaiting insurance authorization. <ShalomCecile Riley - 02/08/18 12:17> Results - Labs Result diagrams: 02/09/18 08:53 02/09/18 08:53 <Tuan Nicolas - 02/09/18 11:36> Abnormal lab results 02/08/18 02/08/18 02/08/18 Range/Units 12:22 17:41 23:12 Hgb (13.0-17.0) gm/dL Hct (39.0-51.0) % Chloride (98-107) meq/L BUN (7-18) mg/dL Creatinine (0.60-1.30) mg/dL Estimated GFR (>89) mL/min POC Glucose 231 H 143 H 134 H (68-110) mg/dl Calcium (8.5-10.1) mg/dL 02/09/18 02/09/18 Range/Units 08:53 08:53 Hgb 10.2 L (13.0-17.0) gm/dL Hct 30.6 L (39.0-51.0) % Chloride 113 H (98-107) meq/L BUN 21 H (7-18) mg/dL Creatinine 1.43 H (0.60-1.30) mg/dL Estimated GFR 47 L (>89) mL/min POC Glucose (68-110) mg/dl Calcium 8.3 L (8.5-10.1) mg/dL Short CBC 02/09/18 Range/Units 08:53 Hgb 10.2 L (13.0-17.0) gm/dL Hct 30.6 L (39.0-51.0) % BMP 02/09/18 08:53 Sodium 143 Potassium 4.3 Chloride 113 H Carbon Dioxide 21.6 BUN 21 H Creatinine 1.43 H Calcium 8.3 L <Tuan Nicolas - 02/09/18 11:36> Abnormal lab results 02/07/18 02/07/18 02/08/18 Range/Units 12:11 23:20 06:50 Hgb (13.0-17.0) gm/dL Hct (39.0-51.0) % Chloride (98-107) meq/L BUN (7-18) mg/dL Creatinine (0.60-1.30) mg/dL Estimated GFR (>89) mL/min POC Glucose 138 H 154 H 118 H (68-110) mg/dl Random Glucose (74-106) mg/dL Calcium (8.5-10.1) mg/dL Albumin (3.4-5.0) g/dL 02/08/18 02/08/18 Range/Units 10:08 10:08 Hgb 10.4 L (13.0-17.0) gm/dL Hct 32.0 L (39.0-51.0) % Chloride 110 H (98-107) meq/L BUN 19 H (7-18) mg/dL Creatinine 1.55 H (0.60-1.30) mg/dL Estimated GFR 43 L (>89) mL/min POC Glucose (68-110) mg/dl Random Glucose 109 H (74-106) mg/dL Calcium 8.2 L (8.5-10.1) mg/dL Albumin 2.5 L (3.4-5.0) g/dL Short CBC 02/08/18 Range/Units 10:08 Hgb 10.4 L (13.0-17.0) gm/dL Hct 32.0 L (39.0-51.0) % BMP 02/08/18 10:08 Sodium 142 Potassium 4.4 Chloride 110 H Carbon Dioxide 23.4 BUN 19 H Creatinine 1.55 H Calcium 8.2 L Liver Function 02/08/18 Range/Units 10:08 Albumin 2.5 L (3.4-5.0) g/dL <Cecile Rausch B - 02/08/18 11:18> Physical Exam Vital signs: Vital Signs 02/08/18 12:00 02/08/18 12:32 02/08/18 13:26 Temperature 97.8 F Pulse Rate 74 86 Respiratory Rate 20 16 Blood Pressure 97/53 L Pulse Oximetry 97 95 02/08/18 16:00 02/08/18 20:00 02/09/18 00:00 Temperature 98.2 F 98 F 97.3 F L Pulse Rate 72 70 68 Respiratory Rate 20 18 18 Blood Pressure 124/60 116/62 129/75 Pulse Oximetry 95 95 94 L 02/09/18 03:41 02/09/18 04:00 02/09/18 04:57 Temperature 97.7 F Pulse Rate 69 72 72 Respiratory Rate 20 24 Blood Pressure 120/63 Pulse Oximetry 95 02/09/18 05:00 02/09/18 08:00 02/09/18 10:05 Temperature 97.8 F Pulse Rate 72 Respiratory Rate 20 Blood Pressure 122/62 Pulse Oximetry 95 96 93 L Intake & Output 02/08/18 02/09/18 02/09/18 18:59 06:59 18:59 Intake Total 360 / 360 Output Total 400 / 400 Balance -40 / -40 Weight 90.8 kg Intake: Oral 360 / 360 Output: Urine 400 / 400 Other: Date of Last Bowel Movement 02/06/18 # Bowel Movements 1 <Tuan Nicolas - 02/09/18 11:36> Vital Signs 02/07/18 12:00 02/07/18 16:00 02/07/18 19:34 Temperature 98.4 F 97.8 F 97.3 F L Pulse Rate 69 70 71 Respiratory Rate 17 20 20 Blood Pressure 133/75 133/94 H 113/56 L Pulse Oximetry 96 94 L 93 L 02/07/18 20:00 02/08/18 00:00 02/08/18 04:00 Temperature 97.6 F 97.2 F L Pulse Rate 71 69 70 Respiratory Rate 18 18 Blood Pressure 113/58 L 115/64 Pulse Oximetry 96 97 02/08/18 08:00 Temperature 97.7 F Pulse Rate 71 Respiratory Rate 20 Blood Pressure 149/71 H Pulse Oximetry 96 Intake & Output 02/07/18 02/08/18 02/08/18 18:59 06:59 18:59 Intake Total 360 / 360 400 / 400 Output Total 250 / 250 300 / 300 Balance 110 / 110 100 / 100 Weight 89.4 kg Intake: Oral 360 / 360 400 / 400 Output: Urine 250 / 250 300 / 300 Other: Date of Last Bowel Movement 02/06/18 # Bowel Movements 1 <Cecile Rausch - 02/08/18 11:18> Narrative: CONSTITUTIONAL/GEN: Obese male, sitting up in bed in no obvious distress.. EYES: conjunctiva normal, PERRLA, EOMI. ENT: Mouth and pharynx normal. LUNGS: coarse lung sounds bilaterally at the lower lung bases. CARDIOVASCULAR: RR without murmur or gallop. No significant edema. GI/ABD: soft without masses, without organomegaly. Nontender to palpation in all 4 quadrants. No rebound or guarding. Bowel sounds present throughout. : no CVA tenderness SKIN: color normal, no rashes noted. PSYCH/MENTAL STATUS: <Cecile Rausch - 02/08/18 12:17> - Urinary Catheter Management Straight Cath placed during this visit: no <Tuan Nicolas - 02/09/18 11:36> yes <Cecile Rausch - 02/08/18 12:17> Reason for continuing: Acute urinary retention <Cecile Rausch - 02/08/18 11: 18> Insertion date: 02/05/18 <Cecile Rausch - 02/08/18 11:18> Insertion time: 16:30 <Cecile Rausch - 02/08/18 11:18> Assessment and Plan - Assessment (1) Renal failure (ARF), acute on chronic Code(s): N17.9 - Acute kidney failure, unspecified; N18.9 - Chronic kidney disease, unspecified Status: Acute Plan: Due to acute dehydration which has now resolved Cr now back to baseline 1.5-1.6 Continue to avoid nephrotoxic agents Monitor kidney function daily while remaining in hospital (2) Normocytic anemia Code(s): D64.9 - Anemia, unspecified Status: Acute Plan: Likely due to chronic renal disease Monitor CBC daily and transfuse as needed (3) Congestive heart failure Code(s): I50.9 - Heart failure, unspecified Status: Acute Plan: Stable symptoms, not in exacerbation Home meds resumed except Lasix If signs of fluid overload or SOB, resume Lasix (4) Essential hypertension Code(s): I10 - Essential (primary) hypertension Status: Chronic Plan: continue home medications except Lasix (5) Diabetes type 2, controlled Code(s): E11.9 - Type 2 diabetes mellitus without complications Status: Acute Plan: Levemir 7 units twice daily POC glucose checks with sliding scale insulin (6) History of CVA (cerebrovascular accident) Code(s): Z86.73 - Personal history of transient ischemic attack (TIA), and cerebral infarction without residual deficits Status: Acute Plan: Continue home Eliquis, carvedilol (7) Nutrition, metabolism, and development symptoms Code(s): R63.8 - Other symptoms and signs concerning food and fluid intake Status: Acute Plan: Nutrition: Renal and cardiac diet Electrolytes: None Fluids: None (8) DVT prophylaxis Status: Acute Plan: DVT prophy: on eliquis GI: none <Cecile Rausch - 02/08/18 12:15> - Assessment and Plan Discharge Planning: See the residents documentation for details. I saw and evaluated the patient regarding the cabrera portions of this evaluation and agree with the residents findings and plans as written. Parts of this note were created using [employer] voice recognition software program. While efforts were made to correct any mistakes made by this software, some mistakes, errors, and omissions may remain in the final note that were not caught when the note was originally created. Plan of care was discussed and agreed upon with the patient as specifically documented in the above note. An opportunity to ask questions with explanation was provided. Patient voiced understanding on all information reviewed and discussed. <Sarah Nicolasy - 02/09/18 11:36> <Cecile Rausch - Last Filed: 02/08/18 12:15> (1) Renal failure (ARF), acute on chronic Qualifiers: Acute renal failure type: unspecified Chronic kidney disease stage: stage 3 ( moderate) Qualified Code(s): N17.9 - Acute kidney failure, unspecified; N18.3 - Chronic kidney disease, stage 3 (moderate) (5) Diabetes type 2, controlled Qualifiers: Diabetes mellitus watermaster insulin use: with senior care use Diabetes mellitus complication status: without complication Qualified Code(s): E11.9 - Type 2 diabetes mellitus without complications; Z79.4 - halfway (current) use of insulin <Cecile Rausch - Last Filed: 02/08/18 12:15> (1) Renal failure (ARF), acute on chronic Qualifiers: Acute renal failure type: unspecified Chronic kidney disease stage: stage 3 ( moderate) Qualified Code(s): N17.9 - Acute kidney failure, unspecified; N18.3 - Chronic kidney disease, stage 3 (moderate) (5) Diabetes type 2, controlled Qualifiers: Diabetes mellitus watermaster insulin use: with watermaster use Diabetes mellitus complication status: without complication Qualified Code(s): E11.9 - Type 2 diabetes mellitus without complications; Z79.4 - intermediate designer (current) use of insulin
[2018-02-09] MEDS: Insulin NovoLOG Aspart Correctional Sugar Inj SQ SCH ×2 (06:38→12:16)
[2018-02-09] MEDS: Insulin Detemir Inj 1,000 UNIT/10 ML Vial SQ SCH (09:08)
[2018-02-09 09:09] VITALS: BP 122/62; RESP 20; TEMP 97.8
[2018-02-09] MEDS: Carvedilol 6.25 MG Tablet PO SCH (09:09)
[2018-02-09] MEDS: Amiodarone 200 MG Tablet PO SCH (09:09)
[2018-02-09] MEDS: Lisinopril 10 MG Tablet PO SCH (09:09)
[2018-02-09 10:06] VITALS: O2SAT 93
[2018-02-09 10:12] VITALS: PULSE 72
[2018-02-09 10:19] LABS: Hematocrit 30.6 % (39.0-51.0); Hemoglobin 10.2 gm/dL (13.0-17.0)
[2018-02-09 10:54] LABS: Potassium 4.3 meq/L (3.5-5.1)
[2018-02-09 10:58] LABS: Calcium 8.3 mg/dL (8.5-10.1); Carbon Dioxide 21.6 meq/L (21.0-32.0)
--- NOTE | 2018-02-09 11:10 | P.PNFP ---
Addendum entered and electronically signed by Brandie Roberts MD, R2 02/09/18 11 :11: Update: BP wnl. con't to hold Lasix outpatient and have patient f/u with PCP for further management or med adjustment. Original Note: Subjective Interval history: Doing well, no new problems or complaints. <Brandie Roberts - 02/09/18 11:10> Results - Labs Result diagrams: 02/09/18 08:53 02/09/18 08:53 <Tuan Nicolas - 02/09/18 12:00> Abnormal lab results 02/08/18 02/08/18 02/08/18 Range/Units 12:22 17:41 23:12 Hgb (13.0-17.0) gm/dL Hct (39.0-51.0) % Chloride (98-107) meq/L BUN (7-18) mg/dL Creatinine (0.60-1.30) mg/dL Estimated GFR (>89) mL/min POC Glucose 231 H 143 H 134 H (68-110) mg/dl Calcium (8.5-10.1) mg/dL 02/09/18 02/09/18 02/09/18 Range/Units 08:53 08:53 11:28 Hgb 10.2 L (13.0-17.0) gm/dL Hct 30.6 L (39.0-51.0) % Chloride 113 H (98-107) meq/L BUN 21 H (7-18) mg/dL Creatinine 1.43 H (0.60-1.30) mg/dL Estimated GFR 47 L (>89) mL/min POC Glucose 196 H (68-110) mg/dl Calcium 8.3 L (8.5-10.1) mg/dL Short CBC 02/09/18 Range/Units 08:53 Hgb 10.2 L (13.0-17.0) gm/dL Hct 30.6 L (39.0-51.0) % BMP 02/09/18 08:53 Sodium 143 Potassium 4.3 Chloride 113 H Carbon Dioxide 21.6 BUN 21 H Creatinine 1.43 H Calcium 8.3 L <Tuan Nicolas - 02/09/18 12:00> Abnormal lab results 02/08/18 02/08/18 02/08/18 Range/Units 12:22 17:41 23:12 Hgb (13.0-17.0) gm/dL Hct (39.0-51.0) % Chloride (98-107) meq/L BUN (7-18) mg/dL Creatinine (0.60-1.30) mg/dL Estimated GFR (>89) mL/min POC Glucose 231 H 143 H 134 H (68-110) mg/dl Calcium (8.5-10.1) mg/dL 02/09/18 02/09/18 Range/Units 08:53 08:53 Hgb 10.2 L (13.0-17.0) gm/dL Hct 30.6 L (39.0-51.0) % Chloride 113 H (98-107) meq/L BUN 21 H (7-18) mg/dL Creatinine 1.43 H (0.60-1.30) mg/dL Estimated GFR 47 L (>89) mL/min POC Glucose (68-110) mg/dl Calcium 8.3 L (8.5-10.1) mg/dL Short CBC 02/09/18 Range/Units 08:53 Hgb 10.2 L (13.0-17.0) gm/dL Hct 30.6 L (39.0-51.0) % BMP 02/09/18 08:53 Sodium 143 Potassium 4.3 Chloride 113 H Carbon Dioxide 21.6 BUN 21 H Creatinine 1.43 H Calcium 8.3 L <AlejandraDanielBrandie N - 02/09/18 11:10> Physical Exam Vital signs: Vital Signs 02/08/18 12:32 02/08/18 13:26 02/08/18 16:00 Temperature 98.2 F Pulse Rate 86 72 Respiratory Rate 16 20 Blood Pressure 124/60 Pulse Oximetry 95 95 02/08/18 20:00 02/09/18 00:00 02/09/18 03:41 Temperature 98 F 97.3 F L 97.7 F Pulse Rate 70 68 69 Respiratory Rate 18 18 20 Blood Pressure 116/62 129/75 120/63 Pulse Oximetry 95 94 L 95 02/09/18 04:00 02/09/18 04:57 02/09/18 05:00 Temperature Pulse Rate 72 72 Respiratory Rate 24 Blood Pressure Pulse Oximetry 95 02/09/18 08:00 02/09/18 10:05 Temperature 97.8 F Pulse Rate 72 Respiratory Rate 20 Blood Pressure 122/62 Pulse Oximetry 96 93 L Intake & Output 02/08/18 02/09/18 02/09/18 18:59 06:59 18:59 Intake Total 360 / 360 Output Total 400 / 400 Balance -40 / -40 Weight 90.8 kg Intake: Oral 360 / 360 Output: Urine 400 / 400 Other: Date of Last Bowel Movement 02/06/18 # Bowel Movements 1 <Tuan Nicolas - 02/09/18 12:00> Vital Signs 02/08/18 12:00 02/08/18 12:32 02/08/18 13:26 Temperature 97.8 F Pulse Rate 74 86 Respiratory Rate 20 16 Blood Pressure 97/53 L Pulse Oximetry 97 95 02/08/18 16:00 02/08/18 20:00 02/09/18 00:00 Temperature 98.2 F 98 F 97.3 F L Pulse Rate 72 70 68 Respiratory Rate 20 18 18 Blood Pressure 124/60 116/62 129/75 Pulse Oximetry 95 95 94 L 02/09/18 03:41 02/09/18 04:00 02/09/18 04:57 Temperature 97.7 F Pulse Rate 69 72 72 Respiratory Rate 20 24 Blood Pressure 120/63 Pulse Oximetry 95 02/09/18 05:00 02/09/18 08:00 02/09/18 10:05 Temperature 97.8 F Pulse Rate 72 Respiratory Rate 20 Blood Pressure 122/62 Pulse Oximetry 95 96 93 L Intake & Output 02/08/18 02/09/18 02/09/18 18:59 06:59 18:59 Intake Total 360 / 360 Output Total 400 / 400 Balance -40 / -40 Weight 90.8 kg Intake: Oral 360 / 360 Output: Urine 400 / 400 Other: Date of Last Bowel Movement 02/06/18 # Bowel Movements 1 <Brandie Roberts - 02/09/18 11:10> Narrative: CONSTITUTIONAL/GEN: Obese male, sitting up in bed in no obvious distress.. EYES: conjunctiva normal, PERRLA, EOMI. ENT: Mouth and pharynx normal. LUNGS: equal bilaterally. CARDIOVASCULAR: RR without murmur or gallop. No significant edema. GI/ABD: non-distended : no CVA tenderness SKIN: color normal, no rashes noted. PSYCH/MENTAL STATUS: dementia <Brandie Roberts N - 02/09/18 11:10> - Urinary Catheter Management Straight Cath placed during this visit: no <Tuan Nicolas - 02/09/18 12:00> yes <Brandie Roberts - 02/09/18 11:10> Reason for continuing: Acute urinary retention <Brandie Roberts N - 02/09/18 11:10 > Insertion date: 02/05/18 <Brandie Roberts N - 02/09/18 11:10> Insertion time: 16:30 <Brandie Roberts N - 02/09/18 11:10> Assessment and Plan - Assessment (1) CRF (chronic renal failure) Code(s): N18.9 - Chronic kidney disease, unspecified Status: Acute Plan: Stable. Cr now back to baseline 1.5-1.6 Continue to avoid nephrotoxic agents (2) Normocytic anemia Code(s): D64.9 - Anemia, unspecified Status: Acute Plan: Likely due to chronic renal disease Check CBC if symptomatic (3) Congestive heart failure Code(s): I50.9 - Heart failure, unspecified Status: Acute Plan: Resume lasix and other home meds (4) Essential hypertension Code(s): I10 - Essential (primary) hypertension Status: Chronic Plan: continue home medications (5) Diabetes type 2, controlled Code(s): E11.9 - Type 2 diabetes mellitus without complications Status: Acute Plan: Controlled with: Levemir 7 units twice daily POC glucose checks with sliding scale insulin (6) History of CVA (cerebrovascular accident) Code(s): Z86.73 - Personal history of transient ischemic attack (TIA), and cerebral infarction without residual deficits Status: Acute Plan: Continue home Eliquis, carvedilol (7) Nutrition, metabolism, and development symptoms Code(s): R63.8 - Other symptoms and signs concerning food and fluid intake Status: Acute Plan: Nutrition: Renal and cardiac diet Electrolytes: None Fluids: None (8) DVT prophylaxis Status: Acute Plan: DVT prophy: on eliquis GI: none (9) Renal failure (ARF), acute on chronic Code(s): N17.9 - Acute kidney failure, unspecified; N18.9 - Chronic kidney disease, unspecified Status: Resolved <Brandie Roberts Nila - 02/09/18 11:05> - Assessment and Plan Discharge Planning: Dc today to SNF <Alma DeliaramónDanielBrandie N - 02/09/18 11:10> - Attending Attestation See the residents documentation for details. I saw and evaluated the patient regarding the cabrera portions of this evaluation and agree with the residents findings and plans as written. Parts of this note were created using [employer] voice recognition software program. While efforts were made to correct any mistakes made by this software, some mistakes, errors, and omissions may remain in the final note that were not caught when the note was originally created. Plan of care was discussed and agreed upon with the patient as specifically documented in the above note. An opportunity to ask questions with explanation was provided. Patient voiced understanding on all information reviewed and discussed. <Sarah Nicolasy - 02/09/18 12:00> <Brandie Roberts N - Last Filed: 02/09/18 11:05> (5) Diabetes type 2, controlled Qualifiers: Diabetes mellitus retirement insulin use: with retirement use Diabetes mellitus complication status: without complication Qualified Code(s): E11.9 - Type 2 diabetes mellitus without complications; Z79.4 - penitentiary (current) use of insulin (9) Renal failure (ARF), acute on chronic Qualifiers: Acute renal failure type: unspecified Chronic kidney disease stage: stage 3 ( moderate) Qualified Code(s): N17.9 - Acute kidney failure, unspecified; N18.3 - Chronic kidney disease, stage 3 (moderate) <Brandie Roberts - Last Filed: 02/09/18 11:05> (5) Diabetes type 2, controlled Qualifiers: Diabetes mellitus retirement insulin use: with retirement use Diabetes mellitus complication status: without complication Qualified Code(s): E11.9 - Type 2 diabetes mellitus without complications; Z79.4 - penitentiary (current) use of insulin (9) Renal failure (ARF), acute on chronic Qualifiers: Acute renal failure type: unspecified Chronic kidney disease stage: stage 3 ( moderate) Qualified Code(s): N17.9 - Acute kidney failure, unspecified; N18.3 - Chronic kidney disease, stage 3 (moderate)
[2018-02-09] MEDS ORDERED: Furosemide 20 MG Tablet PO SCH (11:15)
--- NOTE | 2018-02-09 16:54 | P.DS ---
Date of admission: 02/02/18 13:47 Primary care physician: Norman Penn MD, R3 Brief History from admission: This is a 87-year-old male. Full code. Admission 02/02/2018. Past medical history includes hypertension, hyperlipidemia, coronary artery disease, atrial fibrillation currently with a atrioventricular pacemaker, diabetes mellitus and prior history of CVA with no current focal neurological deficits. Patient presents to [facility] with 2-week history of generalized weakness/ fatigue. Patient has had a very poor appetite and intermittent diarrhea according to 2 care provider at bedside. He was noted to be initially hypotensive with a systolic blood pressure in the 60s. Received 2 L normal saline is currently with a systolic blood sugar 120 and feeling much improved. Initial EKG revealed a paced rhythm. Troponin was 0.02. BMP revealed acute kidney with a creatinine of 3.7. Baseline 1.6. Potassium is 6.7. Patient has a leukocytosis of 14,000 and normocytic anemia. UA is currently pending. Denies any chest pain, abdominal pain. Patient received with potassium binding resins, bicarbonate, D50 and insulin. Recheck potassium is currently pending. We are asked to admit the patient by the ER physician. DS: Diagnosis - Discharge Diagnosis (1) CRF (chronic renal failure) Status: Acute (2) Normocytic anemia Status: Acute (3) Congestive heart failure Status: Acute (4) Essential hypertension Status: Chronic (5) Diabetes type 2, controlled Status: Acute (6) History of CVA (cerebrovascular accident) Status: Acute (7) Nutrition, metabolism, and development symptoms Status: Acute (8) DVT prophylaxis Status: Acute (9) Renal failure (ARF), acute on chronic Status: Resolved DS: Summary Hospital Course: He was noted to be initially hypotensive with a systolic blood pressure in the 60s. Received 2 L normal saline is currently with a systolic blood sugar 120 and feeling much improved. Initial EKG revealed a paced rhythm. Troponin was 0.02. BMP revealed acute kidney with a creatinine of 3.7. Baseline 1.6. Potassium is 6.7. Patient has a leukocytosis of 14,000 and normocytic anemia. UA is currently pending. Denies any chest pain, abdominal pain. Patient received with potassium binding resins, bicarbonate, D50 and insulin. Recheck potassium is currently pending. CC was asked to admit the patient by the ER physician. Potassium improved to 5.3 the next day. NICOLASA resolved on IVF. Lasix was held to avoid worsening NICOLASA and avoid hypotension. Given duonebs and IS to prevent worsening lung exam with crackles while on fluids. Urology was consulted for urinary retention on 02/06. Blackburn catheter was placed but there was difficulty in placing it. Urine subsequently showed hematuria. Urology was advised to maintain blackburn catheter and to follow-up outpatient. Patient was discharged with leg bag. Case management consulted for discharge placement; patient was discharged to SNF. - Time Spent with Patient Total time spent providing and/or coordinating discharge services: Greater than 30 minutes - Quality: VTE Deep Vein Thrombosis/Pulmonary Embolism Present on Admission: No Exam Vital signs: Vital Signs 02/08/18 20:00 02/09/18 00:00 02/09/18 03:41 Temperature 98 F 97.3 F L 97.7 F Pulse Rate 70 68 69 Respiratory Rate 18 18 20 Blood Pressure 116/62 129/75 120/63 Pulse Oximetry 95 94 L 95 02/09/18 04:00 02/09/18 04:57 02/09/18 05:00 Temperature Pulse Rate 72 72 Respiratory Rate 24 Blood Pressure Pulse Oximetry 95 02/09/18 08:00 02/09/18 10:05 Temperature 97.8 F Pulse Rate 72 Respiratory Rate 20 Blood Pressure 122/62 Pulse Oximetry 96 93 L Intake & Output 02/08/18 02/09/18 02/09/18 18:59 06:59 18:59 Intake Total 360 / 360 Output Total 400 / 400 Balance -40 / -40 Weight 90.8 kg Intake: Oral 360 / 360 Output: Urine 400 / 400 Other: Date of Last Bowel Movement 02/06/18 # Bowel Movements 1 Narrative: CONSTITUTIONAL/GEN: Obese male, sitting up in bed in no obvious distress.. EYES: conjunctiva normal, PERRLA, EOMI. ENT: Mouth and pharynx normal. LUNGS: equal bilaterally. CARDIOVASCULAR: RR without murmur or gallop. No significant edema. GI/ABD: non-distended : no CVA tenderness SKIN: color normal, no rashes noted. PSYCH/MENTAL STATUS: dementia Results Procedures completed during hospitalization: None Labs on day of discharge: Labs from last 24 hours 02/09/18 02/09/18 02/09/18 11:28 08:53 08:53 Hgb 10.2 L Hct 30.6 L Sodium 143 Potassium 4.3 Chloride 113 H Carbon Dioxide 21.6 Anion Gap 8 BUN 21 H Creatinine 1.43 H Estimated GFR 47 L POC Glucose 196 H Random Glucose 106 Calcium 8.3 L 02/08/18 02/08/18 23:12 17:41 Hgb Hct Sodium Potassium Chloride Carbon Dioxide Anion Gap BUN Creatinine Estimated GFR POC Glucose 134 H 143 H Random Glucose Calcium - Impressions ITS Impressions Abdomen/Bladder Ultrasound 02/02/18 00:00 CONCLUSION: 1. Kidneys are echogenic consistent with medical renal disease. 2. Bilateral renal cysts. 3. Mild distention of the urinary bladder. Chest X-Ray 02/02/18 12:23 CONCLUSION: 1. No acute abnormality or significant interval change. Discharge Plan - Discharge Disposition Patient Disposition: 03 Discharge to SNF - Discharge Condition Condition: Stable - Discharge Order Discharge Orders: Discharge Order (Routine); Ordered 02/08/18 Ordered By: Brandie Roberts - Discharge Details Anticipated Discharge Date: 02/06/18 - Physicians Team Primary Care Provider: Norman Penn Attending Provider: Tuan Nicolas Other Providers: Kye Joyner MD ; Hiren Ye ; Chema Mock MD
== END 2018-02-09 13:50 ==
LOC: NEPE 11:23 → NEDA 13:47 → HIMC 14:20 → N04 02-04 15:52
PROVIDERS: ADMIT Family Medicine; ATTEND Family Medicine